=== PATIENT | female | born 1930 | race Caucasian/White ===

== ENCOUNTER 2017-09-14 08:32 | Observation (INO) ==
[2017-09-14] MEDS ORDERED: PROCHLORPERAZINE 10 MG/2 ML INJECTION IVP ONE (09:31)
[2017-09-14] MEDS ORDERED: MORPHINE SULFATE 4mg INJECTION IVP ONE ×2 (09:31→11:05)
--- NOTE | 2017-09-14 09:36 | Emergency Department Report ---
Back Pain HPI - General Chief Complaint: Back Pain/Injury Stated Complaint: Abd & lower back pain, R leg pain Time Seen by Provider: 09/14/17 09:14 Source: patient, RN notes reviewed, old records reviewed Mode of arrival: ambulatory Limitations: no limitations - History of Present Illness HPI Narrative: 87yo woman presents to the ER for evaluation of right flank pain. Pt has had these sx for the last month or so. She was initially seen by Dr. Collado; a hip X -ray showed osteoarthritis and he gave her pain meds, which helped until recently. He also referred the pt to Dr. Willams where she was diagnosed with a kidney infection and placed on atbx therapy. Pt now c/o worsening b/l flank pain and pelvic fullness unrelieved by anything that she has tried so far. MD Complaint: back pain Onset (ago): week(s) Duration: constant Location: left flank, right flank Severity: severe Quality: sharp, aching Radiation: abdomen Severity scale (1-10): 8 Relieving factors: medication Exacerbating factors: movement Context: unknown Associated symptoms: weakness, other (Nausea) Treatments prior to arrival: other medications, prescription analgesics - Related Data Home Medications Medication Instructions Recorded Confirmed Levothyroxine Tab [Synthroid] 125 mcg PO DAILY 03/05/17 09/14/17 Vitamin B Complex [Balanced B-100] 1 each PO DAILY 03/05/17 09/14/17 Cholecalciferol [Vit. D-3] 5,000 unit PO DAILY 04/25/17 09/14/17 Vitamin E 400 unit PO DAILY 04/25/17 09/14/17 Carvedilol [Coreg] 3.125 mg PO BID 06/05/17 09/14/17 Ascorbate Calcium [Vitamin C] 500 mg PO DAILY 09/14/17 09/14/17 Phenazopyridine HCl [Azo Urinary 95 mg PO PRN PRN 09/14/17 09/14/17 Pain Relief] SACUBITRIL/VALSARTAN 49/51mg 1 tab PO BID 09/14/17 09/14/17 [ENTRESTO 49/51mg] Spironolactone [Aldactone 25 mg] 25 mg PO DAILY 09/14/17 09/14/17 Previous Rx's Medication Instructions Recorded Nitroglycerin [Nitrostat] 0.4 mg SL Q5M PRN #20 tab 03/07/17 Omeprazole 20 mg PO ACB #30 tab 09/15/17 cephALEXin [Cephalexin] 500 mg PO TID #15 cap 09/15/17 Allergies Allergy/AdvReac Type Severity Reaction Status Date / Time No Known Drug Allergies Allergy Unknown Verified 09/14/17 09:22 Review of Systems All systems: reviewed and negative except as stated Musculoskeletal: Reports: as per HPI, back pain. Denies: joint swelling, arthralgia, myalgia PFSH Patient Stated Medical History Migraine Yes: none recently Peripheral Neuropathy Yes Cataracts Yes: right Dysphagia Yes Angina Yes: takes NTG prn--last Apr 2018 Cardiac Arrhythmia Yes: atrial fib Congestive Heart Failure Yes Coronary Artery Disease Yes Hypertension Yes Other Cardiology Yes: cardiomyopathy Sleep Apnea No Gastroesophageal Reflux Yes Disease Ulcer Yes Other GI Yes: gastroparesis; esophageal stricture Hx Kidney Stones Yes Hx Renal Disease Yes Hx Urinary Tract Infection Yes Other Musculoskeletal Yes: osteoporosis, arthritis Shingles Yes Depression Yes: hx of Surgical History: PPM 04/2001. Laminectomy. Hysterectomy. Appendectomy. carpel tunnel release - Social History Smoking status: Former smoker Substance use type: does not use Alcohol intake frequency: does not drink Household members: none Current occupational status: disabled, retired Current residence: Apartment/Private Home Physical Exam - Limitations Limitations: no limitations - General General appearance: alert, in no apparent distress - Normal Exams: Head:: Normocephalic without trauma Eyes:: Pupils are PERRLA w/ EOMI, No scleral icterus, irritation, or foreign bodies noted ENMT:: No facial trauma, nasal exudates, pharyngeal erythema, or exudates are noted Neck:: Full range of motion, without adenopathy Lymphatic:: No lymphadenopathy Integumentary:: No rashes, hives, or bruising noted Neurological:: Patient is alert, and oriented Psychiatric:: Patient exhibits, appropriate attention - Chest Chest inspection: Present: normal inspection, symmetric chest wall rise. Absent : tenderness, rash - Respiratory Respiratory exam: Present: normal lung sounds bilaterally. Absent: respiratory distress, wheezes, stridor, prolonged expiratory phase, crackles - Cardiovascular Cardiovascular exam: Present: irregular rhythm. Absent: regular rate, normal rhythm, rubs, gallop, clicks - Abdominal Exam Abdominal exam: Present: soft, normal bowel sounds. Absent: distention, tenderness, guarding, rebound, rigidity - Back Exam Back exam: Present: CVA tenderness (R), CVA tenderness (L) Course - Consultations Consultation #1: Hospitalist: Will admit pt to obs for further eval/treatment. Time: 11:04 Vital Signs Temperature 98.2 F 09/14/17 08:51 Pulse Rate 76 09/14/17 08:51 Respiratory Rate 18 09/14/17 08:51 Blood Pressure 197/81 H 09/14/17 08:51 Pulse Oximetry 93 09/14/17 08:51 Temperature 97.4 F 09/15/17 12:00 Pulse Rate 73 09/15/17 16:00 Respiratory Rate 16 09/15/17 12:00 Blood Pressure 171/73 H 09/15/17 12:00 Pulse Oximetry 93 09/15/17 12:00 Back Pain/Injury - MDM Narrative Medical decision making narrative: Pt with b/l pleural effusions and abdominal findings c/w enteritis. UA results c /w UTI/pyelo. Various electrolyte abn's with acute/chronic anemia. After reviewing hx, PE, and lab/rad findings with pt, will discuss admission with hospitalist for further intervention and acute care. - Differential Diagnosis Differential diagnosis: Likely: lumbar radiculopathy, sciatica, strain of lumbar region, renal colic, pyelonephritis - Medical Records Attestation: I reviewed the patient's medical records. - Lab Data Attestation: I reviewed the patient's lab results. Result diagrams: 09/15/17 04:31 09/15/17 04:31 Lab Results 09/14/17 09/14/17 09/14/17 Range/Units 10:10 10:10 10:10 WBC 8.5 (4.5-11.0) T/MM3 RBC 3.45 L (4.00-5.20) M/MM3 Hgb 9.6 L (12-16) GM/DL Hct 31.1 L (36-46) % MCV 90.1 (80-100) UM3 MCH 27.8 (26-34) UUG MCHC 30.9 L (31-37) GM/DL RDW Std Deviation 50.3 H (36.9-50.2) FL Plt Count 446 H (130-400) T/MM3 MPV 9.2 L (9.4-12.4) UM3 Immature Gran % (Auto) 0.1 (0.0-0.5) % Neut % (Auto) 79.9 H (33-66) % Lymph % (Auto) 11.6 L (23-45) % [place] % (Auto) 6.4 (0-9.0) % Eos % (Auto) 1.8 (0-4) % Baso % (Auto) 0.2 (0-2) % Neut # (Auto) 6.8 (1.8-7.7) T/MM3 Lymph # (Auto) 1.0 (1-4.8) T/MM3 [place] # (Auto) 0.5 (0-0.8) T/MM3 Eos # (Auto) 0.2 (0-0.5) T/MM3 Baso # (Auto) 0.0 (0-0.2) T/MM3 Abs Immat Gran (auto) 0.01 (0.00-0.03) T/MM3 Turbidity < 20 (0-20) Sodium 149 H (134-144) MEQ/L Potassium 2.8 L* (3.6-5) MEQ/L Chloride 109 H (98-107) MEQ/L Carbon Dioxide 26 (22-30) MEQ/L Anion Gap 14 (5-15) meq/L BUN 10.0 (7-17) MG/DL Creatinine 0.8 (0.7-1.2) mg/dL GFR Calculation 68 BUN/Creatinine Ratio 13 (6-26) RATIO Glucose 95 (65-110) MG/DL Calculated Osmolality 285 H (261-280) MOSM/KG Calcium 9.2 (8.4-10.2) MG/DL Total Bilirubin 0.50 (0.20-1.30) MG/DL Icterus Index < 2 (0-7) AST 18 (14-36) U/L ALT 14 (1-35) U/L Alkaline Phosphatase 88 (38-126) U/L Total Protein 6.5 (6.3-8.2) g/dL Albumin 3.7 (3.5-5.0) g/dL Globulin 2.8 (2.4-3.6) G/DL Albumin/Globulin Ratio 1.3 (1.1-2.2) RATIO Specimen Hemolysis < 15 (0-25) Ur Collection Type Urine, void-cc/notcc Urine Color [place] (YELLOW) Urine Clarity Cloudy Urine pH 6.0 (5.0-8.0) Ur Specific [place] 1.010 L (1.015-1.025) Urine Protein Inconcl due to color (NEGATIVE) Urine Glucose (UA) Inconcl due to color (NEGATIVE) Urine Ketones Inconcl due to color (NEGATIVE) Urine Occult Blood Trace-intact A (NEGATIVE) Urine Nitrate Inconcl due to color (NEGATIVE) Urine Bilirubin Inconcl due to color (NEGATIVE) Urine Urobilinogen Inconcl due to color (NORMAL) EU/DL Ur Leukocyte Esterase Inconcl due to color (NEGATIVE) Urine RBC 3-5 H (0-3) /HPF Urine WBC Tntc H (0-5) /HPF Urine WBC Clumps Many H Ur Squamous Epith Cells 0-5 Ur Transition Epith Cell 0-1 /HPF Urine Bacteria 4+ H (NEGATIVE) Ur Culture Indicated? Cult reflexed &setup - Radiology Data Attestation: I reviewed the patient's radiology results. CT abd/pelv: IMPRESSION: 1. Minimal nonobstructing left nephrocalcinosis. There is no evidence of obstructive uropathy. 2. Small to moderate size bilateral pleural effusions with subjacent infiltrate/atelectasis at both lung bases left greater than right. 3. Air-fluid levels in small and large bowel which may be due to a gastroenteritis. Recommend clinical correlation and follow-up as indicated. 4. Nodular enlargement of the left adrenal gland measuring 12 mm which is hypodense possibly representing a adrenal adenoma. 5. 12-mm cyst upper pole the left kidney. 6. Gallbladder and uterine anatomy are surgically absent. 7. Diverticulosis coli. 8. Extensive ASVD. 9. Cardiomegaly. Disposition Clinical Impression: pleural effusions, Hypokalemia, Hypernatremia UTI (urinary tract infection) Qualifiers: Urinary tract infection type: acute pyelonephritis Qualified Code(s): N10 - Acute pyelonephritis Anemia Qualifiers: Anemia type: unspecified type Qualified Code(s): D64.9 - Anemia, unspecified Disposition: [facility] [place] Condition: Stable - Seen By: physician
[2017-09-14] MEDS: SALINE FLUSH 10ml SYRINGE IVF PRN ×3 (10:10→11:13)
--- NOTE | 2017-09-14 10:53 | CT Scan Report ---
EXAM: CT renal wo con ([facility]) HISTORY: B/l flank pain COMPARISON: No prior studies are available for comparison PROCEDURE: Axial images were obtained throughout the entire abdomen and pelvis without contrast administration. The current CT scan was performed using radiation dose-reduction techniques. FINDINGS: FINDINGS: LUNG BASES: Small to moderate size bilateral pleural effusions are evident with subjacent infiltrate/atelectasis in both lower lobes left greater than right. The heart is enlarged with artifact from pacemaker wires. There is no pericardial effusion. LIVER: Normal size and contour showing no obvious discrete lesions on this unenhanced exam. SPLEEN: Normal size and contour showing no obvious discrete lesions on this unenhanced exam. GALLBLADDER/BILIARY: Surgically absent. PANCREAS: Normal size and contour showing no ductal dilatation, peripancreatic inflammatory stranding or obvious discrete lesions on this unenhanced exam. ADRENAL GLANDS: There is hypodense nodular enlargement of the left adrenal gland measuring 12 mm. The right adrenal gland appears unremarkable. KIDNEYS: Normal size and contour showing no obvious discrete lesions on this unenhanced exam. There is no evidence of hydronephrosis. There is minimal nonobstructing left nephrocalcinosis. There is no evidence of right nephrocalcinosis. There is no evidence of hydroureter or ureterolith.12-mm cyst upper pole the left kidney. VASCULAR: The abdominal aorta and IVC are normal caliber. Diffuse plaque formation is seen in the abdominal aorta and iliac arteries. LYMPH NODES: No abdominal pelvic adenopathy. STOMACH BOWEL LOOPS: There is a small hiatal hernia. The stomach is partially distended appearing otherwise unremarkable. The bowel loops are normal caliber, there is no evidence of mechanical bowel obstruction. There are scattered air-fluid levels seen within small and large bowel loops that are normal caliber. There is no obvious bowel wall thickening. The assessment for acute inflammatory bowel changes limited without IV contrast. Scattered diverticula are seen along the course of the colon without obvious diverticulitis. URINARY BLADDER: Not adequately distended for assessment. UTERINE ANATOMY: Surgically absent. OSSEOUS STRUCTURES: No obvious acute osseous abnormality. Advanced degenerative lumbar spondylosis is evident with multilevel severe disc narrowing and vacuum disc phenomenon. There is moderate right convex lumbar scoliosis. PERITONEAL CAVITY: No free air or free fluid ABDOMINAL WALL: No abdominal wall defects are identified IMPRESSION: 1. Minimal nonobstructing left nephrocalcinosis. There is no evidence of obstructive uropathy. 2. Small to moderate size bilateral pleural effusions with subjacent infiltrate/atelectasis at both lung bases left greater than right. 3. Air-fluid levels in small and large bowel which may be due to a gastroenteritis. Recommend clinical correlation and follow-up as indicated. 4. Nodular enlargement of the left adrenal gland measuring 12 mm which is hypodense possibly representing a adrenal adenoma. 5. 12-mm cyst upper pole the left kidney. 6. Gallbladder and uterine anatomy are surgically absent. 7. Diverticulosis coli. 8. Extensive ASVD. 9. Cardiomegaly. .
[2017-09-14 11:45] VITALS: BMI 19.9
[2017-09-14] MEDS ORDERED: ONDANSETRON 4 MG/2 ML INJECTION IVP PRN (11:52)
[2017-09-14] MEDS ORDERED: SENNA + DOCUSATE TABLET PO PRN (11:52)
[2017-09-14] MEDS ORDERED: MORPHINE SULFATE 4mg INJECTION IVP PRN (11:52)
[2017-09-14] MEDS ORDERED: NITROGLYCERIN 0.4 MG SUBLINGUAL TABLET SL PRN (11:59)
[2017-09-14] MEDS ORDERED: NS 1,000 ML IV SCH (12:00)
[2017-09-14] MEDS ORDERED: CARVEDILOL 3.125 MG TABLET PO ONE (12:14)
[2017-09-14] MEDS ORDERED: LISINOPRIL 5 MG TABLET PO SCH (12:15)
--- NOTE | 2017-09-14 12:43 | History & Physical Report ---
History of Present Illness Date: 09/14/17 Chief complaint: right flank/hip pain, UTI, hypernatremia, hypokalemia HPI: Trish Stanley is a pleasant 87-year-old female patient of Dr. Collado who presented to [facility] [place] ED today, 09/14/17, for evaluation of severe right sided hip and back pain. She reports that for the past 3-4 weeks, she has had progressively worsening right back and hip pain that is worse with walking and movement. She was seen by Dr. Collado and outpatient x-ray was obtained on 08/31/17 which revealed moderate diffuse osteopenia without definite displaced fracture and moderate osteoarthritis of the right hip. She was started on pain control with [place] and Ultram with minimal improvement. She denies any known injury or falls. No recent fevers, chills, chest pain, shortness of breath, nausea, vomiting or diarrhea. She reports that for the past 3 days, she has had decreased appetite with dizziness, increased right back pain, generalized weakness and decreased energy. She also reports increased nocturia but denies any dysuria, hematuria or incontinence. She has a history of urethral stricture for which she previously followed with Dr. Torres for dilation. She has not had a urethral dilation "forever". She admits to poor oral intake because "nothing tastes good" but denies any nausea or vomiting. Due to her increased pain with generalized weakness, she presented to [facility] [place] ED for evaluation. Upon arrival, blood pressure was elevated at 197/81. Labs were obtained and revealed stable WBC 8.5, anemia (Hgb 9.6), hypernatremia (Na 149) and hypokalemia (K 2.8). UA revealed WBC too numerous to count with WBC clumps and 4+ bacteria. She states that she was encouraged to take over the counter Azo for "pain" which she has been taking without improvement. Renal CT was obtained in ED and revealed small-moderate bilateral pleural effusions with subjacent infiltrate/atelectasis in both bases with questionable adrenal adenoma and left renal cyst. She has known a-fib and is scheduled for pacemaker replacement on 09/21/17 in [place] and follows with Dr. Travis. Due to her severe pain with electrolyte abnormalities, Dr. Butcher was consulted and she was accepted to observation status for further evaluation and treatment. Review of Systems All systems PM: 10-point ROS was reviewed, no additional remarkable complaints except - Constitutional Constitutional: Present: anorexia, fatigue. Absent: fever(s) - EENMT Eyes: Absent: change in vision, dry eye Ears: Absent: ear pain Balance: Absent: vertigo Nose: Absent: nosebleeds Mouth/Throat: Present: dry mouth. Absent: sore throat - Cardiovascular Cardiovascular: Absent: chest pain, palpitations, syncope, dyspnea on exertion, orthopnea, edema Vascular: Absent: pallor of an extermity, pedal edema, unilateral swelling - Respiratory Respiratory: Absent: cough, dyspnea, hemoptysis, dyspnea on exertion - Gastrointestinal Gastrointestinal: Present: abdominal pain (lower). Absent: diarrhea, melena, nausea, vomiting - Genitourinary Genitourinary: Present: flank pain, other (nocturia). Absent: dysuria, hematuria Menstruation: post hysterectomy - Musculoskeletal Musculoskeletal: Present: back pain, limited range of motion (right leg), muscle weakness. Absent: deformity - Integumentary/Breasts Integumentary: Absent: rash - Neurological Neurological: Present: abnormal gait (secondary to pain), weakness. Absent: convulsions, focal weakness, vertigo - Psychiatric Psychiatric: Absent: anxiety, depression - Endocrine Endocrine: Absent: flushing, palpitations - Hematologic/Lymphatic Hematologic/Lymphatic: Absent: easy bruising - Allergic/Immunologic Allergic/Immunologic: Present: seasonal rhinorrhea Past Medical History Medical History Updates: Hypertension. Peripheral neuropathy. Dysphagia. A- fib. CHF - EF ~20%. CAD. Cardiomyopathy. GERD. Esophageal strictures. History of frequent UTIs. Osteopenia. Osteoarthritis. History of shingles. History of depression. Back pain. Surgical History: Pacemaker placement - 2000 (scheduled to have replacement placed 09/21/17). Laminectomy. Hysterectomy. Appendectomy. Carpel tunnel release. Heart cath - 02/2017. EGD with dilation - 06/05/17 Family History: Brother - , unknown cancer. Sister - , bone cancer. Family History: As Above - Social History Smoking status: Former smoker Substance use type: does not use Alcohol intake frequency: does not drink Housing: house Household members: none Current occupational status: retired, disabled Does patient use chewing tobacco?: No Current residence: Apartment/Private Home Social history: PCP - Dr. Collado. Cardio - Dr. Travis. Medications Home Medications Medication Instructions Recorded Confirmed Type Levothyroxine Tab [Synthroid] 125 mcg PO DAILY 03/05/17 09/14/17 History Vitamin B Complex [Balanced B-100] 1 each PO DAILY 03/05/17 09/14/17 History Nitroglycerin [Nitrostat] 0.4 mg SL Q5M PRN #20 tab 03/07/17 09/14/17 Rx Cholecalciferol [Vit. D-3] 5,000 unit PO DAILY 04/25/17 09/14/17 History Vitamin E 400 unit PO DAILY 04/25/17 09/14/17 History Carvedilol [Coreg] 3.125 mg PO BID 06/05/17 09/14/17 History Ascorbate Calcium [Vitamin C] 500 mg PO DAILY 09/14/17 09/14/17 History Phenazopyridine HCl [Azo Urinary 95 mg PO PRN PRN 09/14/17 09/14/17 History Pain Relief] SACUBITRIL/VALSARTAN 49/51mg 1 tab PO BID 09/14/17 09/14/17 History [ENTRESTO 49/51mg] Spironolactone [Aldactone 25 mg] 25 mg PO DAILY 09/14/17 09/14/17 History Allergies Allergy/AdvReac Type Severity Reaction Status Date / Time No Known Drug Allergies Allergy Unknown Verified 09/14/17 09:22 Exam Vital Signs: Temperature 98.3 F 09/14/17 11:55 Pulse Rate 73 09/14/17 11:55 Respiratory Rate 18 09/14/17 11:55 Blood Pressure 190/117 H 09/14/17 11:55 Pulse Oximetry 93 09/14/17 11:55 Height/Weight/BMI: Height 4 ft 6 in Weight 82 lb 10.774 oz Body Mass Index 19.9 Comments: Patient resting in bed with family at the bedside. Appears uncomfortable with movement, holding her right lower back. - Constitutional Present: no acute distress, well nourished, well developed, thin, cooperative - Routine HEENT Exam Head: Present: normocephalic, atraumatic Eye: Present: PERRL ENT: Present: mucous membranes dry, oropharynx clear - Routine Neck Exam Present: supple, full ROM, trachea midline - Routine Chest/Breast/Axilla Exam Chest wall: Present: pacemaker - Routine Respiratory Exam Present: CTA bilaterally. Absent: respiratory distress, wheezes - Routine Cardiovascular Exam Present: S1, S2, irregular rhythm - Routine Abdominal Exam Present: soft, normoactive bowel sounds, tenderness (mild, generalized lower abdomen). Absent: rebound, guarding - Routine Extremities Exam Present: no edema, pulses intact Comments: limited ROM due to pain to right lower back/hip. - Routine Back/Spine/Pelvis Exam Back/Spine: Present: kyphosis. Absent: vertebral tenderness Comments: Limited ROM due to pain to right lower back and right hip. - Routine Skin Exam Present: intact, dry, warm Comments: Afebrile. - Routine Neurological Exam Present: alert, oriented X3, moving all extremities, hearing grossly intact, normal speech - Routine Psychiatric Exam Present: normal affect, cooperative Results - Labs CBC & Chem 7: 09/14/17 10:10 09/14/17 10:10 - Impressions Date of Exam: 09/14/17 Ordering Provider: Chirag Golden DO Type of Exam(s): CT renal wo con ([facility]) Reason for Exam(s): B/l flank pain EXAM: CT renal wo con ([facility]) HISTORY: B/l flank pain COMPARISON: No prior studies are available for comparison PROCEDURE: Axial images were obtained throughout the entire abdomen and pelvis without contrast administration. The current CT scan was performed using radiation dose-reduction techniques. FINDINGS: FINDINGS: LUNG BASES: Small to moderate size bilateral pleural effusions are evident with subjacent infiltrate/atelectasis in both lower lobes left greater than right. The heart is enlarged with artifact from pacemaker wires. There is no pericardial effusion. LIVER: Normal size and contour showing no obvious discrete lesions on this unenhanced exam. SPLEEN: Normal size and contour showing no obvious discrete lesions on this unenhanced exam. GALLBLADDER/BILIARY: Surgically absent. PANCREAS: Normal size and contour showing no ductal dilatation, peripancreatic inflammatory stranding or obvious discrete lesions on this unenhanced exam. ADRENAL GLANDS: There is hypodense nodular enlargement of the left adrenal gland measuring 12 mm. The right adrenal gland appears unremarkable. KIDNEYS: Normal size and contour showing no obvious discrete lesions on this unenhanced exam. There is no evidence of hydronephrosis. There is minimal nonobstructing left nephrocalcinosis. There is no evidence of right nephrocalcinosis. There is no evidence of hydroureter or ureterolith.12-mm cyst upper pole the left kidney. VASCULAR: The abdominal aorta and IVC are normal caliber. Diffuse plaque formation is seen in the abdominal aorta and iliac arteries. LYMPH NODES: No abdominal pelvic adenopathy. STOMACH BOWEL LOOPS: There is a small hiatal hernia. The stomach is partially distended appearing otherwise unremarkable. The bowel loops are normal caliber, there is no evidence of mechanical bowel obstruction. There are scattered air-fluid levels seen within small and large bowel loops that are normal caliber. There is no obvious bowel wall thickening. The assessment for acute inflammatory bowel changes limited without IV contrast. Scattered diverticula are seen along the course of the colon without obvious diverticulitis. URINARY BLADDER: Not adequately distended for assessment. UTERINE ANATOMY: Surgically absent. OSSEOUS STRUCTURES: No obvious acute osseous abnormality. Advanced degenerative lumbar spondylosis is evident with multilevel severe disc narrowing and vacuum disc phenomenon. There is moderate right convex lumbar scoliosis. PERITONEAL CAVITY: No free air or free fluid ABDOMINAL WALL: No abdominal wall defects are identified IMPRESSION: 1. Minimal nonobstructing left nephrocalcinosis. There is no evidence of obstructive uropathy. 2. Small to moderate size bilateral pleural effusions with subjacent infiltrate/atelectasis at both lung bases left greater than right. 3. Air-fluid levels in small and large bowel which may be due to a gastroenteritis. Recommend clinical correlation and follow-up as indicated. 4. Nodular enlargement of the left adrenal gland measuring 12 mm which is hypodense possibly representing a adrenal adenoma. 5. 12-mm cyst upper pole the left kidney. 6. Gallbladder and uterine anatomy are surgically absent. 7. Diverticulosis coli. 8. Extensive ASVD. 9. Cardiomegaly. Assessment and Plan Assessment and Plan: Assessment: Acute medical conditions present on admission: Acute right flank/back/hip pain. UTI. Hypernatremia (Na 149). Hypokalemia (K 2.8). Acute on chronic anemia (Hgb 9.6). Hypertensive emergency (197/81). Chronic medical conditions: Anemia, chronic. Hypertension. Peripheral neuropathy. Dysphagia. A-fib. CHF - EF ~20%. CAD. Cardiomyopathy. GERD. Esophageal strictures. History of frequent UTIs. Osteopenia. Osteoarthritis. History of shingles. History of depression. Back pain. Plan - 09/14/17: Admit to observation status under the care of Dr. Butcher. Pain out of proportion for pyelonephrosis. Clinical exam concerning for origin from right hip or low back. Will obtain right hip CT now for further evaluation. UA in ED revealed TNTC WBC with clumps and 4+ bacteria. Patient given Cipro 500mg IV x 1 dose in ED. WBC stable. Initiate Rocephin 1g IV daily for empiric coverage of suspected urinary pathogens. UA culture pending. Pyridium TID x 3 days for dysuria. Blood cultures pending. Lactate pending. Initiate NS 75cc/hr for gentle hydration. Monitor urinary output and daily weight closely for signs of fluid overload. EF ~20%. Give KCl IV boluses for hypokalemia. Recheck BMP at 1600 to monitor sodium and potassium. Monitor closely on telemetry. Will continue home Coreg 3.125 BID and Entresto 49/51 BID for blood pressure. Zofran and Compazine PRN nausea/vomiting. Given history of urethral strictures, would recommend outpatient follow up with Dr. Willams for evaluation and possible dilation. Recheck labs in AM to monitor blood counts, electrolytes and renal function. Upon discharge, patient's care will be returned to her PCP, Dr. Collado. Patient requests to be a DNR. DVT Prophylaxis: SCD's Resuscitation Status: Do Not Resuscitate - Time spent with patient Time with patient PN: 70 minutes - Physician Narrative Physician: Amrita Butcher MD Narrative: Date: 09/14/17 Time: 1537 Ms. Stanley was independently interviewed and examined by me. She is currently resting comfortably. She tells me her biggest complaint is right back, hip and leg pain. She states that hurts to walk. It's also very tender to palpation over the hip joint and buttocks. She has pain with lifting that leg off the bed as well as dorsal and plantar flexion against resistance. She denied fever or chills to me. She denied any lightheadedness. She does report shortness of breath but states this is not new and it's because of her heart. He denies any cough. She does have of abdominal pain primarily in the right lower quadrant. She denies any nausea or vomiting. She does admit to poor PO intake due to no appetite. She denied chest discomfort. She does have some dysuria complaints. She presented to the emergency room and was found to have a potassium of 2.8 with a sodium of 149 and a chloride 109. Her urine analysis showed 4+ bacteria. This will be cultured. A renal CT was done which showed minimal not instructing left nephrocalcinosis without obstructive neuropathy. Small to moderate bilateral pleural effusions with possible infiltrate/atelectasis at both lung bases, left greater than right. There are air fluid levels in the small bowel and large bowel which may be due to her gastroenteritis. There was nodular enhancement of the left adrenal gland which is hypo-dance and could represent and adrenal adenoma. There was a 12 mm system upper pole of the left kidney. There is extensive atherosclerotic vascular disease. A hip CT showed moderate degenerative changes in the region of the right hip joint. There was mild soft tissue swelling in the subcutaneous tissues over the right hip and buttock. On physical exam: Gen: alert and oriented. NAD Skin: warm and dry HEENT: NC/AT PERRL, EOMI, Sclera, lids and conjunctiva wnl, MMM, OP clear Neck: supple. No JVD, Carotids 2+ without bruits. Lungs: Few crackles at posterior bases, No wheezes. CV: irregular. No murmur, rub or gallop Abd: soft. NT/ND, +BS MS: No edema. Good strength and ROM in left LE and bilateral upper ext. Right side weak due to pain. Neuro: No focal deficit Psy: normal mood and affect Assessment and plan: Right hip pain -Consult ortho for an opinion -Pain management UTI -Rocephin and pyridium -Await urine cx. -Blood cx obtained Anemia, chronic -she is a bit lower than she has been in the past. -Will check iron studies and stool for occult blood Hypertension. -Will continue her Entresto as well as her carvedilol Hypokalemia -On aldactone and ARB -Replace and repeat labs A-fib. -Rate control with Carvedilol CHF - EF ~20%. -Patient going for replacement ICD next week. -On entresto -May need addition diuretics -due to her pleural effusions and her poor EF I would hold off on giving her IV fluids at this time, lactate is normal. CAD. -Medical management Cardiomyopathy. -On Entresto -On aldactone -ICD Hypothyroid -On supplements GERD -not on any Rx for this Esophageal strictures. -Would likely benefit from PPI chronically History of frequent UTIs. -Currently appears to have one, will treat with Rocephin IV -Await cultures History of depression. Back pain. Osteopenia. Osteoarthritis. Upon discharge, patient's care will be returned to her PCP, Dr. Collado. Patient requests to be a DNR. I have reviewed her notes, labs and imaging. The patient has been discussed with the nurse practitioner at length. I agree with her assessment and plan with the changes made above. Hospital Course Summary Disclaimer: The visit summary below is not to be considered part of the above Progress Note. Hospital Course: Plan - 09/14/17: Admit to observation status under the care of Dr. Butcher. Pain out of proportion for pyelonephrosis. Clinical exam concerning for origin from right hip or low back. Will obtain right hip CT now for further evaluation. UA in ED revealed TNTC WBC with clumps and 4+ bacteria. Patient given Cipro 500mg IV x 1 dose in ED. WBC stable. Initiate Rocephin 1g IV daily for empiric coverage of suspected urinary pathogens. UA culture pending. Pyridium TID x 3 days for dysuria. Blood cultures pending. Lactate pending. Initiate NS 75cc/hr for gentle hydration. Monitor urinary output and daily weight closely for signs of fluid overload. EF ~20%. Give KCl IV boluses for hypokalemia. Recheck BMP at 1600 to monitor sodium and potassium. Monitor closely on telemetry. Will continue home Coreg 3.125 BID and Entresto 49/51 BID for blood pressure. Zofran and Compazine PRN nausea/vomiting. Given history of urethral strictures, would recommend outpatient follow up with Dr. Willams for evaluation and possible dilation. Recheck labs in AM to monitor blood counts, electrolytes and renal function. Upon discharge, patient's care will be returned to her PCP, Dr. Collado. Patient requests to be a DNR.
[2017-09-14] MEDS: CEFTRIAXONE 1 G in NS 100 ML IV SCH (12:55)
[2017-09-14] MEDS ORDERED: CEFTRIAXONE IV SCH (13:00)
[2017-09-14] MEDS ORDERED: DEXTROSE 5% IV SCH (13:00)
[2017-09-14] MEDS: ACETAMINOPHEN 325 MG TABLET PO PRN ×2 (13:06→21:18)
[2017-09-14] MEDS: LIDOCAINE 1% INJ 10 MG, POTASSIUM CHLORIDE INJ 10 MEQ in NS 100 ML IV SCH ×4 (14:09→17:38)
--- NOTE | 2017-09-14 15:05 | CT Scan Report ---
EXAM: CT hip RT wo con HISTORY: hip pain COMPARISON: No prior studies available for comparison. TECHNIQUE: Contiguous thin section images were obtained through the right hip in the transaxial plane. Coronal, sagittal and 3-D reconstruction imaging was utilized. Dose reduction techniques were implemented. FINDINGS: The osseous structures of the right hip are moderately demineralized. Anatomic alignment is maintained at the articular surfaces. There is moderate degenerative narrowing of the superior aspect of the right hip joint with juxta articular spurring. No acute fractures or focal destructive lesions are identified. The right acetabulum, the right femoral head/neck, proximal shaft of the right femur and the right superior inferior pubic rami appear to be intact. Degenerative subchondral cystic changes are seen in the superolateral aspect of the femoral head/neck. Chondrocalcinosis is seen within the articular cartilage of the right femoral head. The bowel loops seen in the right hemipelvis are normal caliber. The visualized urinary bladder appears unremarkable. No free fluid or hematoma is seen within the right hemipelvis. There is mild soft tissue swelling in the subcutaneous tissues over right hip and buttock region. Arteriosclerotic vessel calcifications are visualized. IMPRESSION: 1. Moderate degenerative changes in the region of the right hip joint. 2. No acute bony trauma in the region of the right hip. 3. No free fluid or hematoma is seen in the right hemipelvis. 4. Mild soft tissue swelling in the subcutaneous tissues over the right hip and buttock. 5. ASVD. .
[2017-09-14] MEDS: PHENAZOPYRIDINE 95 MG TABLET PO SCH ×2 (16:34→21:19)
[2017-09-14] MEDS: CARVEDILOL 3.125 MG TABLET PO SCH (17:47)
[2017-09-14] MEDS: SACUBITRIL/VALSARTAN 49/51mg TABLET PO SCH (21:19)
--- NOTE | 2017-09-15 08:27 | Orthopedic Consult Note ---
Orthopedic Consultation HPI - Consultation Info Consult Date: 09/15/17 Attending Physician: Amrita Buthcer MD Consult Reason: other - History of Present Illness 87 yo female with a history of multiple back surgeries with on and off events of low back and right leg discomfort for many years. She most recently developed right low back and buttocks pain about 3-4 days before this admission. She reported severe pain with radicular symptoms down the right leg but never had numbness or loss of function in the leg. The pain was worse with wt bearing or trying to change position. She admits that the pain is improved since admission, but is not completely resolved. She denies injury, trauma, groin pain, fever, chills or loss of bowel/bladder function. Denies numbness, tingling or weakness in the leg. She is normally very active and, until recently, continued to mow her own yard. X-rays were recently taken by her PCP and CT scan of the hip on admission did not reveal any acute fracture or destructive process, but she does have age related degenerative changes in the hip joint. Orthopedics was asked to see her for evaluation and treatment of this process. Review of Systems - Constitutional Constitutional: Absent: chills, fever(s) - Cardiovascular Cardiovascular: Present: other (She is scheduled for a cardiac procedure in the next week or two. Had a pacemaker for 17 yrs.). Absent: chest pain - Respiratory Respiratory: Absent: cough (Was placed on oxygen last night.) - Gastrointestinal Gastrointestinal: Absent: abdominal pain - Genitourinary Genitourinary General: Absent: chills, fever(s) - Musculoskeletal Musculoskeletal: Present: as per HPI, arthralgias - Integumentary/Breasts Integumentary: Absent: rash, wounds - Neurological Neurological: Present: other (Has hurt into the right leg and into the great toe. ). Absent: focal weakness, numbness, paresthesias, tingling - Psychiatric Psychiatric: Present: other (No reported problems by pt or reading her history.) [facility] Patient Stated Medical History Migraine Yes: none recently Peripheral Neuropathy Yes Cataracts Yes: right Dysphagia Yes Angina Yes: takes NTG prn--last Apr 2018 Cardiac Arrhythmia Yes: atrial fib Congestive Heart Failure Yes Coronary Artery Disease Yes Hypertension Yes Other Cardiology Yes: cardiomyopathy Sleep Apnea No Gastroesophageal Reflux Yes Disease Ulcer Yes Other GI Yes: gastroparesis; esophageal stricture Hx Kidney Stones Yes Hx Urinary Tract Infection Yes Other Musculoskeletal Yes: osteoporosis, arthritis Shingles Yes Depression Yes: hx of Medical History Updates: Hypertension. Peripheral neuropathy. Dysphagia. A- fib. CHF - EF ~20%. CAD. Cardiomyopathy. GERD. Esophageal strictures. History of frequent UTIs. Osteopenia. Osteoarthritis. History of shingles. History of depression. Back pain. Surgical History: Pacemaker placement - 2000 (scheduled to have replacement placed 09/21/17). Laminectomy. Hysterectomy. Appendectomy. Carpel tunnel release. Heart cath - 02/2017. EGD with dilation - 06/05/17 - Social History Smoking status: Former smoker Substance use type: does not use Alcohol intake frequency: does not drink Housing: house Household members: none Current occupational status: retired, disabled Does patient use chewing tobacco?: No Current residence: Apartment/Private Home Medications Home Medications Medication Instructions Recorded Confirmed Type Levothyroxine Tab [Synthroid] 125 mcg PO DAILY 03/05/17 09/14/17 History Vitamin B Complex [Balanced B-100] 1 each PO DAILY 03/05/17 09/14/17 History Nitroglycerin [Nitrostat] 0.4 mg SL Q5M PRN #20 tab 03/07/17 09/14/17 Rx Cholecalciferol [Vit. D-3] 5,000 unit PO DAILY 04/25/17 09/14/17 History Vitamin E 400 unit PO DAILY 04/25/17 09/14/17 History Carvedilol [Coreg] 3.125 mg PO BID 06/05/17 09/14/17 History Ascorbate Calcium [Vitamin C] 500 mg PO DAILY 09/14/17 09/14/17 History Phenazopyridine HCl [Azo Urinary 95 mg PO PRN PRN 09/14/17 09/14/17 History Pain Relief] SACUBITRIL/VALSARTAN 49/51mg 1 tab PO BID 09/14/17 09/14/17 History [ENTRESTO 49/51mg] Spironolactone [Aldactone 25 mg] 25 mg PO DAILY 09/14/17 09/14/17 History Allergies Allergy/AdvReac Type Severity Reaction Status Date / Time No Known Drug Allergies Allergy Unknown Verified 09/14/17 09:22 Exam - Constitutional Vital Signs: Temperature 98.6 F 09/15/17 07:53 Pulse Rate 72 09/15/17 07:53 Respiratory Rate 18 09/15/17 07:53 Blood Pressure 178/73 H 09/15/17 07:53 Pulse Oximetry 96 09/15/17 08:05 General: cooperative, no acute distress, frail appearing Nutritional Appearance: thin Orientation: alert - Gait Assistive Device: walker - Psych Mood: normal Affect: normal Attitude: cooperative - RLE General: normal to inspection Knee: no effusion Knee Palpation: Nontender to Palpation: medial joint line, lateral joint line Hip Palpation: Tender: greater trochanteric bursa (Mild.), PSIS (Markedly tender. ) Skin: no rashes or lesions noted, no ecchymosis, no lacerations or abrasions Knee Range of Motion: within normal limits Hip Range of Motion: normal ROM Ankle Range of Motion: normal ROM Neurological: no deficits, normal to light touch, strength 5/5 throughout Vascular: dorsalis pedis pulse within normal limits Right Lower Extremity comments: No dermatomal changes. Strength is intact. Pt able to ambulate independently with a walker without focal weakness. - Labs Result Diagrams: 09/15/17 04:31 09/15/17 04:31 Abnormal lab results 09/14/17 09/15/17 09/15/17 Range/Units 16:07 04:31 04:31 RBC 3.47 L (4.00-5.20) M/MM3 Hgb 9.5 L (12-16) GM/DL Hct 31.7 L (36-46) % MCHC 30.0 L (31-37) GM/DL RDW Std Deviation 51.8 H (36.9-50.2) FL Plt Count 474 H (130-400) T/MM3 Neut % (Auto) 69.4 H (33-66) % Lymph % (Auto) 20.0 L (23-45) % Sodium 148 H 148 H (134-144) MEQ/L Potassium 3.2 L (3.6-5) MEQ/L Chloride 111 H 112 H (98-107) MEQ/L Calculated Osmolality 283 H 283 H (261-280) MOSM/KG H & H 09/15/17 Range/Units 04:31 Hgb 9.5 L (12-16) GM/DL Hct 31.7 L (36-46) % Impression and Recommendation (1) Enthesopathy of pelvis Current visit: Yes Status: Acute Although she has some radicular complaints, I don't see a particular dermatomal pattern to her complaints and exam does not support that this is originating from her back. Her hip joint is arthritic but her symptoms do not appear to be hip in nature. This appears to be a tendonitis or fasciitis of the PSIS attachment area. She is point tender over the PSIS region and these often respond well to an injection. I discussed the injection procedure and offered conservative observation since she is improving. Trish would like to proceed with a steroid injection at this site in hopes to improve her pain. We discussed possible side effects of the injection and reasonable expectations of relief. She may resume normal activities after the injection as tolerated. Use a walker to prevent falls. Hospital Course Summary Disclaimer: The visit summary below is not to be considered part of the above Progress Note. Hospital Course: Plan - 09/14/17: Admit to observation status under the care of Dr. Butcher. Pain out of proportion for pyelonephrosis. Clinical exam concerning for origin from right hip or low back. Will obtain right hip CT now for further evaluation. UA in ED revealed TNTC WBC with clumps and 4+ bacteria. Patient given Cipro 500mg IV x 1 dose in ED. WBC stable. Initiate Rocephin 1g IV daily for empiric coverage of suspected urinary pathogens. UA culture pending. Pyridium TID x 3 days for dysuria. Blood cultures pending. Lactate pending. Initiate NS 75cc/hr for gentle hydration. Monitor urinary output and daily weight closely for signs of fluid overload. EF ~20%. Give KCl IV boluses for hypokalemia. Recheck BMP at 1600 to monitor sodium and potassium. Monitor closely on telemetry. Will continue home Coreg 3.125 BID and Entresto 49/51 BID for blood pressure. Zofran and Compazine PRN nausea/vomiting. Given history of urethral strictures, would recommend outpatient follow up with Dr. Willams for evaluation and possible dilation. Recheck labs in AM to monitor blood counts, electrolytes and renal function. Upon discharge, patient's care will be returned to her PCP, Dr. Collado. Patient requests to be a DNR.
[2017-09-15] MEDS: CARVEDILOL 3.125 MG TABLET PO SCH (08:33)
[2017-09-15] MEDS: SACUBITRIL/VALSARTAN 49/51mg TABLET PO SCH (08:34)
[2017-09-15] MEDS: PHENAZOPYRIDINE 95 MG TABLET PO SCH ×2 (08:34→14:21)
--- NOTE | 2017-09-15 08:44 | Progress Note ---
- Date 09/15/17 Subjective: F/U: UTI, SI joint inflammation. Trish is seen first thing this morning in conjunction with [facility], and reports that she is feeling a little better. She is seen while ambulating back to her bed from the bathroom and is is ambulating well without assistance. She continues to complain of severe pain especially with movement and walking to her right SI joint. She also reports that she had a "panic attack" last night which she admits she has frequently. She was given Ativan and started on supplemental oxygen with improvement. She denies any current chest pain, shortness of breath, abdominal pain, nausea, vomiting or dysuria. Ortho has suggested trying steroid injection to her SI joint today to attempt pain improvement. Labs today remain unremarkable with persistent stable anemia (hgb 9.5). Appetite is stable and urinary output is adequate. Objective Vital signs: Temperature 98.6 F 09/15/17 07:53 Pulse Rate 72 09/15/17 07:53 Respiratory Rate 18 09/15/17 07:53 Blood Pressure 178/73 H 09/15/17 07:53 Pulse Oximetry 96 09/15/17 08:05 Height/Weight/BMI: Height 4 ft 6 in Weight 82 lb 10.774 oz Body Mass Index 19.9 Comments: Ambulated from bathroom back to bed without assistance or difficulty. Seen in conjunction with ortho. - Constitutional Present: no acute distress, well nourished, well developed, thin, cooperative - Routine HEENT Exam Head: Present: normocephalic, atraumatic Eye: Present: PERRL. Absent: conjunctival icterus ENT: Present: mucous membranes moist, oropharynx clear - Routine Respiratory Exam Present: CTA bilaterally. Absent: respiratory distress, wheezes - Routine Cardiovascular Exam Present: S1, S2, irregular rhythm - Routine Abdominal Exam Present: soft, normoactive bowel sounds, non tender - Routine Extremities Exam Present: no edema, full ROM, pulses intact Comments: strength equal and strong bilaterally. N/V intact. Point tenderness to right SI joint. - Routine Back/Spine/Pelvis Exam Back/Spine: Present: full ROM. Absent: vertebral tenderness - Routine Musculoskeletal Exam Musculoskeletal: Present: no clubbing or cyanosis, moving extremities well - Routine Skin Exam Present: intact, dry, warm Comments: Afebrile. - Routine Neurological Exam Present: alert, oriented X3, moving all extremities, hearing grossly intact, normal speech - Routine Lymphatic Exam Lymphatic: Absent: lymphedema - Routine Psychiatric Exam Present: normal affect, cooperative Results - Labs CBC & Chem 7: 09/15/17 04:31 09/15/17 04:31 Microbiology Results: Microbiology 09/14/17 13:31 Peripheral/Iv Start Blood Culture - Preliminary Culture Initiated - Results Pending 09/14/17 13:37 Peripheral/Iv Start Blood Culture - Preliminary Culture Initiated - Results Pending Assessment and Plan Assessment and Plan: Acute medical conditions present on admission: Acute right flank/back/hip pain. Tendonitis or fasciitis of the PSIS attachment area. UTI - E coli. Hypernatremia (Na 149). Hypokalemia (K 2.8) - resolved. Acute on chronic anemia (Hgb 9.6) - stable. Hypertensive emergency (197/81). Chronic medical conditions: Anemia, chronic. Hypertension. Peripheral neuropathy. Dysphagia. A-fib. CHF - EF ~20%. CAD. Cardiomyopathy. GERD. Esophageal strictures. History of frequent UTIs. Osteopenia. Osteoarthritis. History of shingles. History of depression. Back pain. Plan - 09/15/17: Patient reports having a panic attack last night. She admits to history of anxiety with frequent panic attacks. Improved with ativan and supplemental oxygen. Evaluated by ortho this AM. Recommended steroid injection to SI joint for pain control today. Labs unremarkable. Anemia stable (hgb 9.5). Remains afebrile. Continue Rocephin 1g IV for empiric coverage of suspected urinary pathogens ( day 2). UA culture pending. Pyridium TID x 3 days for dysuria. Blood cultures pending. Serial lactates 0.8 then 0.7. Hypokalemia resolved. Given KCl IV boluses with improvement to 3.2. Then given KCl 40 mEq po x 1 dose. Continue to monitor. Persistent hypernatremia (Na 148). NS 75cc/hr for gentle hydration. Monitor urinary output and daily weight closely for signs of fluid overload. EF ~20%. Continue to monitor closely on telemetry. Will continue home Coreg 3.125 BID and Entresto 49/51 BID for blood pressure. Zofran and Compazine PRN nausea/vomiting. Given history of urethral strictures, would recommend outpatient follow up with Dr. Willams for evaluation and possible dilation. Recheck labs in AM to monitor blood counts, electrolytes and renal function. DVT Prophylaxis: SCD's Resuscitation Status: Do Not Resuscitate - Time spent with patient Time with patient PN: 30 minutes - Physician Narrative Physician: Bennie Stovall MD Narrative: Date: 09/15/17 Time: 1422 Have independently interviewed & examined pt. Chart reviewed. Case discussed with CM & my PA. Care plan developed with my supervision; agree with above. Doing better this afternoon-note some decrease to hip pain. Did work with therapy and did well-they recommend walker for assistance, which she has at home. Breathing well-not having increased SOA or congestion. No pain with breathing. No nausea. Denies f/c. Does note increase acid reflux and some difficulty swallowing since omeprazole changed to ranitidine. Lungs: basilar blunting, but not crackles or wheeze. Breaths comfortably on RA. CV: regular AB: soft nt MSE: awake alert appropriate Plan: Medically stable for discharge to home. Walker for assistance as per PT recommendations. Will start cephalexin 500mg TID for 5 days starting tomorrow for Ecoli UTI treatment. Recommend omeprazole 20mg ac breakfast due to GERD/ esophagitis as symptoms not controlled with ranitidine. Continue chronic home medications. Continue home health as prior to admission. F/U with Dr Collado in 1 week. See orders for details. Hospital Course Summary Disclaimer: The visit summary below is not to be considered part of the above Progress Note. Hospital Course: 09/14/17 Admit to observation status under the care of Dr. Butcher. Pain out of proportion for pyelonephrosis. Clinical exam concerning for origin from right hip or low back. Will obtain right hip CT now for further evaluation. UA in ED revealed TNTC WBC with clumps and 4+ bacteria. Patient given Cipro 500mg IV x 1 dose in ED. WBC stable. Initiate Rocephin 1g IV daily for empiric coverage of suspected urinary pathogens. UA culture pending. Pyridium TID x 3 days for dysuria. Blood cultures pending. Lactate pending. Initiate NS 75cc/hr for gentle hydration. Monitor urinary output and daily weight closely for signs of fluid overload. EF ~20%. Give KCl IV boluses for hypokalemia. Recheck BMP at 1600 to monitor sodium and potassium. Monitor closely on telemetry. Will continue home Coreg 3.125 BID and Entresto 49/51 BID for blood pressure. Zofran and Compazine PRN nausea/vomiting. Given history of urethral strictures, would recommend outpatient follow up with Dr. Willams for evaluation and possible dilation. Recheck labs in AM to monitor blood counts, electrolytes and renal function. Upon discharge, patient's care will be returned to her PCP, Dr. Collado. Patient requests to be a DNR. 09/15/17 Patient reports having a panic attack last night. She admits to history of anxiety with frequent panic attacks. Improved with Ativan and supplemental oxygen. Evaluated by ortho this AM. Recommended steroid injection to SI joint for pain control today. Labs unremarkable. Anemia stable (hgb 9.5). Remains afebrile. Continue Rocephin 1g IV for empiric coverage of suspected urinary pathogens ( day 2). UA culture growing E coli. Pyridium TID x 3 days for dysuria. Blood cultures pending. Serial lactates 0.8 then 0.7. Hypokalemia resolved. Given KCl IV boluses with improvement to 3.2. Then given KCl 40 mEq po x 1 dose. Continue to monitor. Persistent hypernatremia (Na 148). NS 75cc/hr for gentle hydration. Monitor urinary output and daily weight closely for signs of fluid overload. EF ~20%. Will continue home Coreg 3.125 BID and Entresto 49/51 BID for blood pressure. Given history of urethral strictures, would recommend outpatient follow up with Dr. Willams for evaluation and possible dilation. Medically stable for discharge to home. Walker for assistance as per PT recommendations. Will start cephalexin 500mg TID for 5 days starting tomorrow for Ecoli UTI treatment. Recommend omeprazole 20mg ac breakfast due to GERD/esophagitis as symptoms not controlled with ranitidine. Continue chronic home medications. Continue home health as prior to admission. F/U with Dr Collado in 1 week. See orders for details.
[2017-09-15] MEDS ORDERED: NS 1,000 ML IV SCH (08:45)
--- NOTE | 2017-09-15 08:45 | Operative Note ---
Orthopedic Procedures - Bursa Procedures Site of procedure: other (Right PSIS attachment) XRAY obtained: normal Antisepsis used: Chlorhexidine Local anesthetic used: lidocaine 1% Amount of anesthesia used (mL): 4 Medication injected: other (Kenalog 40mg ) Amount of medication used (mg): 40 Lidocaine added to medication: Yes (The 4cc was added to the Kenalog.) Patient tolerated procedure: well, no complications Complications: none
[2017-09-15] MEDS ORDERED: ASCORBIC ACID 500 MG TABLET PO SCH (09:00)
[2017-09-15] MEDS ORDERED: VITAMIN E 400 UNIT CAPSULE PO SCH (09:00)
[2017-09-15] MEDS ORDERED: VITAMIN B COMPLEX + C TABLET PO SCH (09:00)
[2017-09-15] MEDS ORDERED: SPIRONOLACTONE 25 MG TABLET PO SCH (09:00)
[2017-09-15] MEDS ORDERED: LEVOTHYROXINE 125 MCG TABLET PO SCH (09:00)
[2017-09-15] MEDS ORDERED: POLYETHYL GLYCOL 3350 17gm PACKET PO SCH (09:00)
--- NOTE | 2017-09-15 09:51 | XRay Report ---
INDICATION: Sys HF PROCEDURE: CHEST 2-VIEWS UPRIGHT (PA & LAT) Encounter: Initial COMPARISON: June 16, 2017 FINDINGS: Lungs are similar in appearance with small to moderate left and small right pleural effusions. Lower lobe compressive atelectasis. No pneumothorax. Heart size and mediastinal contours are stable. Pulmonary vascularity is indistinct. Left pacemaker. Impression: Moderate pulmonary edema, likely due to CHF with increasing pleural fluid. .
[2017-09-15] MEDS ORDERED: TRIAMCINOLONE 40mg/ml 1ml INJECTION INJ ONE (12:42)
[2017-09-15 13:00] VITALS: BP 171/73; RESP 16; TEMP 97.4; O2SAT 93
[2017-09-15] MEDS: CEFTRIAXONE 1 G in NS 100 ML IV SCH (14:21)
--- NOTE | 2017-09-15 14:45 | Discharge Summary ---
Discharge Information Date of admission: 09/14/17 11:12 Anticipated date of discharge: 09/15/17 Attending Physician: Bennie Stovall MD Primary care physician: Terrance Collado II, MD Consults: Physician Consult: Cassius Boucher Reason For Exam: acute right hip pain - no trauma PT/OT - Discharge Diagnosis (1) E. coli UTI (urinary tract infection) Status: Acute Discharge diagnosis Acute right flank/back/hip pain Tendonitis or fasciitis of the PSIS attachment area. UTI - E coli Associated conditions and complications Hypernatremia (POA) Hypokalemia (POA) - resolved. Small to moderate left and small right pleural effusions (POA) Nonobstructing left nephrocalcinosis (POA) Acute on chronic anemia (Hgb 9.6) - stable Hypertensive emergency () -improved Anemia, chronic Hypertension Peripheral neuropathy Dysphagia A-fib CHF - EF ~20% CAD Cardiomyopathy GERD Esophageal strictures History of frequent UTIs Osteopenia Osteoarthritis History of shingles History of depression Back pain - Procedures Procedures: Orthopedic Procedures - Bursa Procedures Site of procedure: other (Right PSIS attachment) Antisepsis used: Chlorhexidine Local anesthetic used: lidocaine 1% Amount of anesthesia used (mL): 4 Medication injected: other (Kenalog 40mg ) Amount of medication used (mg): 40 Lidocaine added to medication: Yes (The 4cc was added to the Kenalog.) Patient tolerated procedure: well, no complications Complications: none - Laboratory Labs: Admit Lab 09/14/17 10:10 WBC 8.5 Hgb 9.6 L Hct 31.1 L MCV 90.1 Plt Count 446 H Neut % (Auto) 79.9 H Lymph % (Auto) 11.6 L [place] % (Auto) 6.4 Eos % (Auto) 1.8 Baso % (Auto) 0.2 Admit Lab 09/14/17 09/14/17 10:10 13:31 Sodium 149 H Potassium 2.8 L* Chloride 109 H Carbon Dioxide 26 Anion Gap 14 BUN 10.0 Creatinine 0.8 GFR Calculation 68 BUN/Creatinine Ratio 13 Glucose 95 Calculated Osmolality 285 H Calcium 9.2 Total Bilirubin 0.50 AST 18 ALT 14 Alkaline Phosphatase 88 Albumin 3.7 Globulin 2.8 Albumin/Globulin Ratio 1.3 Plasma Lactate 0.8 09/15/17 04:31 09/15/17 04:31 - Microbiology Microbiology 09/14/17 13:31 Peripheral/Iv Start Blood Culture - Preliminary No Growth After 1 Day 09/14/17 13:37 Peripheral/Iv Start Blood Culture - Preliminary No Growth After 1 Day Urine culture from admission growing E coli - Radiology Radiology: Date of Exam: 09/14/17 Type of Exam: CT renal wo con (stone kahlil) FINDINGS: LUNG BASES: Small to moderate size bilateral pleural effusions are evident with subjacent infiltrate/atelectasis in both lower lobes left greater than right. The heart is enlarged with artifact from pacemaker wires. There is no pericardial effusion. LIVER: Normal size and contour showing no obvious discrete lesions on this unenhanced exam. SPLEEN: Normal size and contour showing no obvious discrete lesions on this unenhanced exam. GALLBLADDER/BILIARY: Surgically absent. PANCREAS: Normal size and contour showing no ductal dilatation, peripancreatic inflammatory stranding or obvious discrete lesions on this unenhanced exam. ADRENAL GLANDS: There is hypodense nodular enlargement of the left adrenal gland measuring 12 mm. The right adrenal gland appears unremarkable. KIDNEYS: Normal size and contour showing no obvious discrete lesions on this unenhanced exam. There is no evidence of hydronephrosis. There is minimal nonobstructing left nephrocalcinosis. There is no evidence of right nephrocalcinosis. There is no evidence of hydroureter or ureterolith.12-mm cyst upper pole the left kidney. VASCULAR: The abdominal aorta and IVC are normal caliber. Diffuse plaque formation is seen in the abdominal aorta and iliac arteries. LYMPH NODES: No abdominal pelvic adenopathy. STOMACH BOWEL LOOPS: There is a small hiatal hernia. The stomach is partially distended appearing otherwise unremarkable. The bowel loops are normal caliber, there is no evidence of mechanical bowel obstruction. There are scattered air-fluid levels seen within small and large bowel loops that are normal caliber. There is no obvious bowel wall thickening. The assessment for acute inflammatory bowel changes limited without IV contrast. Scattered diverticula are seen along the course of the colon without obvious diverticulitis. URINARY BLADDER: Not adequately distended for assessment. UTERINE ANATOMY: Surgically absent. OSSEOUS STRUCTURES: No obvious acute osseous abnormality. Advanced degenerative lumbar spondylosis is evident with multilevel severe disc narrowing and vacuum disc phenomenon. There is moderate right convex lumbar scoliosis. PERITONEAL CAVITY: No free air or free fluid ABDOMINAL WALL: No abdominal wall defects are identified IMPRESSION: 1. Minimal nonobstructing left nephrocalcinosis. There is no evidence of obstructive uropathy. 2. Small to moderate size bilateral pleural effusions with subjacent infiltrate/ atelectasis at both lung bases left greater than right. 3. Air-fluid levels in small and large bowel which may be due to a gastroenteritis. Recommend clinical correlation and follow-up as indicated. 4. Nodular enlargement of the left adrenal gland measuring 12 mm which is hypodense possibly representing a adrenal adenoma. 5. 12-mm cyst upper pole the left kidney. 6. Gallbladder and uterine anatomy are surgically absent. 7. Diverticulosis coli. 8. Extensive ASVD. 9. Cardiomegaly. Date of Exam: 09/14/17 Type of Exam: CT hip RT wo con FINDINGS: The osseous structures of the right hip are moderately demineralized. Anatomic alignment is maintained at the articular surfaces. There is moderate degenerative narrowing of the superior aspect of the right hip joint with juxta articular spurring. No acute fractures or focal destructive lesions are identified. The right acetabulum, the right femoral head/neck, proximal shaft of the right femur and the right superior inferior pubic rami appear to be intact. Degenerative subchondral cystic changes are seen in the superolateral aspect of the femoral head/neck. Chondrocalcinosis is seen within the articular cartilage of the right femoral head. The bowel loops seen in the right hemipelvis are normal caliber. The visualized urinary bladder appears unremarkable. No free fluid or hematoma is seen within the right hemipelvis. There is mild soft tissue swelling in the subcutaneous tissues over right hip and buttock region. Arteriosclerotic vessel calcifications are visualized. IMPRESSION: 1. Moderate degenerative changes in the region of the right hip joint. 2. No acute bony trauma in the region of the right hip. 3. No free fluid or hematoma is seen in the right hemipelvis. 4. Mild soft tissue swelling in the subcutaneous tissues over the right hip and buttock. 5. ASVD. Date of Exam: 09/15/17 Type of Exam: XR chest 2V FINDINGS: Lungs are similar in appearance with small to moderate left and small right pleural effusions. Lower lobe compressive atelectasis. No pneumothorax. Heart size and mediastinal contours are stable. Pulmonary vascularity is indistinct. Left pacemaker. Impression: Moderate pulmonary edema, likely due to CHF with increasing pleural fluid. History of Present Illness HPI: Trish Stanley is a pleasant 87-year-old female patient of Dr. Collado who presented to [facility] today, 09/14/17, for evaluation of severe right sided hip and back pain. She reports that for the past 3-4 weeks, she has had progressively worsening right back and hip pain that is worse with walking and movement. She was seen by Dr. Collado and outpatient x-ray was obtained on 08/31/17 which revealed moderate diffuse osteopenia without definite displaced fracture and moderate osteoarthritis of the right hip. She was started on pain control with [place] and Ultram with minimal improvement. She denies any known injury or falls. No recent fevers, chills, chest pain, shortness of breath, nausea, vomiting or diarrhea. She reports that for the past 3 days, she has had decreased appetite with dizziness, increased right back pain, generalized weakness and decreased energy. She also reports increased nocturia but denies any dysuria, hematuria or incontinence. She has a history of urethral stricture for which she previously followed with Dr. Torres for dilation. She has not had a urethral dilation "forever". She admits to poor oral intake because "nothing tastes good" but denies any nausea or vomiting. Due to her increased pain with generalized weakness, she presented to [facility] for evaluation. Upon arrival, blood pressure was elevated at 197/81. Labs were obtained and revealed stable WBC 8.5, anemia (Hgb 9.6), hypernatremia (Na 149) and hypokalemia (K 2.8). UA revealed WBC too numerous to count with WBC clumps and 4+ bacteria. She states that she was encouraged to take over the counter Azo for "pain" which she has been taking without improvement. Renal CT was obtained in ED and revealed small-moderate bilateral pleural effusions with subjacent infiltrate/atelectasis in both bases with questionable adrenal adenoma and left renal cyst. She has known a-fib and is scheduled for pacemaker replacement on 09/21/17 in [place] and follows with Dr. Travis. Due to her severe pain with electrolyte abnormalities, Dr. Butcher was consulted and she was accepted to observation status for further evaluation and treatment. For complete details of the H&P refer to that document. Objective Vital signs: Temperature 97.4 F 09/15/17 12:00 Pulse Rate 74 09/15/17 12:00 Respiratory Rate 16 09/15/17 12:00 Blood Pressure 171/73 H 09/15/17 12:00 Pulse Oximetry 93 09/15/17 12:00 Height/Weight/BMI: Height 1.37 m Weight 40 kg Body Mass Index 19.9 Hospital Course This is a general summary of the patient's hospital course. For more details refer to the complete medical record. Hospital course: 09/14/17 OBS admission Admit to observation status under the care of Dr. Butcher. Pain out of proportion for pyelonephrosis. Clinical exam concerning for origin from right hip or low back. Will obtain right hip CT now for further evaluation. UA in ED revealed TNTC WBC with clumps and 4+ bacteria. Patient given Cipro 500mg IV x 1 dose in ED. WBC stable. Initiate Rocephin 1g IV daily for empiric coverage of suspected urinary pathogens. UA culture pending. Pyridium TID x 3 days for dysuria. Blood cultures pending. Lactate pending. Initiate NS 75cc/hr for gentle hydration. Monitor urinary output and daily weight closely for signs of fluid overload. EF ~20%. Give KCl IV boluses for hypokalemia. Recheck BMP at 1600 to monitor sodium and potassium. Monitor closely on telemetry. Will continue home Coreg 3.125 BID and Entresto 49/51 BID for blood pressure. Zofran and Compazine PRN nausea/vomiting. Given history of urethral strictures, would recommend outpatient follow up with Dr. Wilalms for evaluation and possible dilation. Recheck labs in AM to monitor blood counts, electrolytes and renal function. Upon discharge, patient's care will be returned to her PCP, Dr. Collado. Patient requests to be a DNR. 09/15/17 Discharge Patient reports having a panic attack last night. She admits to history of anxiety with frequent panic attacks. Improved with Ativan and supplemental oxygen. Evaluated by ortho this AM. Recommended steroid injection to SI joint for pain control today. Labs unremarkable. Anemia stable (hgb 9.5). Remains afebrile. Continue Rocephin 1g IV for empiric coverage of suspected urinary pathogens ( day 2). UA culture growing E coli. Pyridium TID x 3 days for dysuria. Blood cultures pending. Serial lactates 0.8 then 0.7. Hypokalemia resolved. Given KCl IV boluses with improvement to 3.2. Then given KCl 40 mEq po x 1 dose. Continue to monitor. Persistent hypernatremia (Na 148). NS 75cc/hr for gentle hydration. Monitor urinary output and daily weight closely for signs of fluid overload. EF ~20%. Will continue home Coreg 3.125 BID and Entresto 49/51 BID for blood pressure. Given history of urethral strictures, would recommend outpatient follow up with Dr. Willams for evaluation and possible dilation. Medically stable for discharge to home. Walker for assistance as per PT recommendations. Will start cephalexin 500mg TID for 5 days starting tomorrow for Ecoli UTI treatment. Recommend omeprazole 20mg ac breakfast due to GERD/esophagitis as symptoms not controlled with ranitidine. Continue chronic home medications. Continue home health as prior to admission. F/U with Dr Collado in 1 week. F/U with Dr. Willams for evaluation and possible dilation of ureteral stricture. F/U with Dr Boucher as needed for back/hip pain. See orders for details. Time spent with patient: discharge greater than 30 minutes Resuscitation Status: Do Not Resuscitate Discharge Plan - Discharge Disposition Discharge Date: 09/15/17 Disposition: 86 Home Health Service *Condition: Stable Reason For Visit (Visit label in EMR): pyelo; pleural effusion - Discharge Medications *Discharge Medications: New Omeprazole 20 mg PO ACB #30 tab cephALEXin [Cephalexin] 500 mg PO TID #15 cap Continue Vitamin B Complex [Balanced B-100] 1 each PO DAILY Nitroglycerin [Nitrostat] 0.4 mg SL Q5M PRN #20 tab PRN Reason: Angina Cholecalciferol [Vit. D-3] 5,000 unit PO DAILY Vitamin E 400 unit PO DAILY Carvedilol [Coreg] 3.125 mg PO BID Ascorbate Calcium [Vitamin C] 500 mg PO DAILY Spironolactone [Aldactone 25 mg] 25 mg PO DAILY SACUBITRIL/VALSARTAN 49/51mg [ENTRESTO 49/51mg] 1 tab PO BID Phenazopyridine HCl [Azo Urinary Pain Relief] 95 mg PO PRN PRN PRN Reason: Bladder Spasms Or Pain Levothyroxine Tab [Synthroid] 125 mcg PO DAILY - Discharge Packet/Instructions *Diet: Low sodium *Activity: Walker for assistance *Pain Management/Treatment: Continue prior home pain medications. Tylenol safe to use for pain. *Wound Care: N/A Additional Instructions: May start cephalexin on Wens 09/16/17. *Expected Signs/Symptoms: Improvement of hip and back pain. *Notify Physician if: Temp > 100.4 degrees. Worsening hip/back pain. *During Business Hours Contact: Dr Collado *After Business Hours Contact: Call [facility] and have Dr Collado or his covering provider contacted. *Pending Lab/Results: Follow up w/Provider (Urine culture and sensitivity pending.) - Referrals/Follow Up *Referrals/Follow Up: Terrance Collado II, MD [Primary Care Provider] - 1 Week (Hopsital follow up with E coli UTI and back pain from tendonitis or fasciitis of the PSIS attachment area on right. ) Cassius Boucher MD [Physician] - (As needed for tendonitis or fasciitis of the PSIS attachment area) Murray Willams MD [Physician] - 1 Week (Urological evaluation for history or urerteral strictures. See in 1-2 weeks.) - Patient Handouts - Dismissal Complete Discharge Instructions are:: Complete Physician Narrative - Narrative Physician: Bennie Stovall MD Attestation Narrative: Date: 09/15/17 Time: 1442 I have independently interviewed and examined patient prior to discharge. See my progress note for details. Medically stable for discharge to home.
[2017-09-15 16:29] VITALS: PULSE 73
== END 2017-09-15 16:20 | disposition home health service (06) ==
LOC: MED 08:32 → ED 08:32 → SUATTDRO 11:12 → MED 11:35
PROVIDERS: ADMIT Internal Medicine Cardiovascular Disease; ATTEND Hospitalist

== ENCOUNTER 2017-11-23 18:25 | Observation (INO) ==
--- OUTSIDE RECORDS SUMMARY | 2017-11-23 18:42 | External Medical Summary ---
:1930 Author Organization [facility] Address [address] [place] [address] Care Team Providers Name Role Phone KevinAlysha hanley Unavailable Unavailable PROBLEMS Type Condition ICD9-CM [id number] Onset Condition SNOMED Code Code Code Dates Status Problem Biventricular Z95.810 Active 83036497396849 implantable cardioverter-defib rillator (ICD) in situ Problem Non-ischemic I42.8 Active 46006769 cardiomyopathy Problem Pacemaker Z95.0 Active [id number] ALLERGIES No Known Allergies ENCOUNTERS Encounter Location Date Diagnosis [address] Jan, [facility] [address] [place] [address] Oct, Non-ischemic cardiomyopathy [facility] [address] I42.8 ; Bradycardia R00.1 [place] [address] and Biventricular implantable cardioverter-defibrillator (ICD) in situ Z95.[address] September, [address] [address] September, [address] [address] September, Non-ischemic cardiomyopathy [facility] [address] I42.8 ; Bradycardia R00.1 [place] [address] and Pacemaker Z95.0 IMMUNIZATIONS No Known Immunizations SOCIAL HISTORY Never Assessed REASON FOR VISIT ^GAT F/U POST DEVICE UPGRADE PLAN OF CARE Activity Details Follow Up 3 Months Reason: VITAL SIGNS Height 55 in 2017-10-09 Weight 82.6 lbs 2017-10-09 BMI 19.20 kg/m2 2017-10-09 Oximetry 98 % 2017-10-09 Heart Rate 63 /min 2017-10-09 Blood pressure systolic 128 mm Hg 2017-10-09 Blood pressure diastolic 64 mm Hg 2017-10-09 MEDICATIONS Medication Instructions Dosage Frequency Start End Duration Status Date Date Vitamin B 100 MCG Orally qd 1 tab 24h Active Vitamin D 1000 Orally Once a 1 tablet 24h Active UNIT day Hydrocodone 1 tab PRN 5-325mg Active Loratadine 10 MG Orally Once a 1 tablet 24h Active day Vitamin E 400 UNIT Orally Once a 1 capsule 24h Active day Vitamin C 500 MG Active Omeprazole 20 MG Orally Once a 1 capsule 24h Active day Levothyroxine Orally Once a 1 tablet 24h Active Sodium 125 MCG day on an empty stomach in the morning Carvedilol 3.125 Orally bid 1 tqab 12h Active MG Spironolactone 25 Orally Once a 1 tablet 24h Active MG day with food Furosemide 20 MG Orally Once a 1 tablet 24h Active day Entresto 24-26 MG Orally Twice a 1 tablet 12h Active day Aspirin 81 MG Orally Once a 1 tablet 24h Active day Atorvastatin Orally Once a 1 tablet 24h Active Calcium 10 MG day RESULTS Name Result Date Reference Range AtriaECW PROCEDURES Procedure Date Ordered Result Body Site ELECTROCARDIOGRAM, COMPLETE October 09, 2017 Ofc Program ICD BiV, Staff October 09, 2017 INSTRUCTIONS MEDICATIONS ADMINISTERED No Known Medications MEDICAL (GENERAL) HISTORY Type Description Date Surgical History Cardiac pacemaker Surgical History Laminectomy Surgical History Hysterectomy Surgical History Appendectomy Surgical History carpal tunnel Surgical History Cataract removal
--- OUTSIDE RECORDS SUMMARY | 2017-11-23 18:42 | External Medical Summary ---
:1930 Author Organization [employer] [facility] Address [address] [place] [address] Care Team Providers Name Role Phone Alysha Jerez Unavailable Unavailable PROBLEMS Type Condition ICD9-CM Code [id number] Onset Condition SNOMED Code Code Dates Status Problem Non-ischemic I42.8 Active 55202193 cardiomyopathy Problem Pacemaker Z95.0 Active [id number] ALLERGIES No Known Allergies ENCOUNTERS Encounter Location Date Diagnosis [address] Oct, [employer] [facility] [address] [place] [address] [employer] [facility] [address] [facility] September, [address] [place] [address] [employer] [address] September, [address] [place] [address] September, Non-ischemic cardiomyopathy [facility] [facility] [address] I42.8 ; Bradycardia R00.1 [place] [address] and Pacemaker Z95.0 IMMUNIZATIONS No Known Immunizations SOCIAL HISTORY Never Assessed REASON FOR 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 [facility] VISIT0 PLAN OF CARE Activity Details Follow Up 1 Week after procedure Reason: VITAL SIGNS Height 55 in 2017-09-11 Weight 90.0 lbs 2017-09-11 BMI 20.92 kg/m2 2017-09-11 Oximetry 94 % 2017-09-11 Heart Rate 73 /min 2017-09-11 Blood pressure systolic 143 mm Hg 2017-09-11 Blood pressure diastolic 60 mm Hg 2017-09-11 MEDICATIONS Medication Instructions Dosage Frequency Start End Duration Status Date Date Loratadine 10 MG Orally Once a 1 tablet 24h Active day Carvedilol 3.125 Orally bid 1 tqab 12h Active MG Tramadol HCl 50 MG Orally prn 1 tablet Active as needed Spironolactone 25 Orally Once a 1 tablet 24h Active MG day with food Levothyroxine Orally Once a 1 tablet 24h Active Sodium 125 MCG day on an empty stomach in the morning Entresto 49-51 MG Orally Twice a 1 tablet 12h Active day Vitamin D 1000 Orally Once a 1 tablet 24h Active UNIT day Hydrocodone 1 tab PRN 5-325mg Active Vitamin E 400 UNIT Orally Once a 1 capsule 24h Active day Furosemide 20 MG Orally Once a 1 tablet 24h Active day Vitamin B 100 MCG Orally qd 1 tab 24h Active Folic Acid 400 MCG Orally Once a 1 tablet 24h Active day RESULTS Name Result Date Reference Range EKG ECGHr ECGSystolicBP ECGDiastolicBP ECGPRInterval ECGQTInterval ECGQTcInterval ECGQRSDuration ECGPWaveAxis ECGQrsWaveAxis ECGTWaveAxis RR_MeanHR RR_DiastolicBP RR_SystolicBP RR_MeanRRInterval RR_MinRRInterval RR_MaxRRInterval RR_NumBeats RR_NumNormalBeats AtriaECW PROCEDURES Procedure Date Ordered Result Body Site ELECTROCARDIOGRAM, COMPLETE September 11, 2017 Ofc Program PM Dual, Staff September 11, 2017 INSTRUCTIONS MEDICATIONS ADMINISTERED No Known Medications MEDICAL (GENERAL) HISTORY Type Description Date Medical History Cardiomyopathy Medical History Pacemaker implantation Medical History Anxiety disorder Medical History Osteoporosis Medical History Paroxysml Atrial fibrillation Medical History Mixed Hyperlipidemia Surgical History Cardiac pacemaker Surgical History Laminectomy Surgical History Hysterectomy Surgical History Appendectomy Surgical History carpal tunnel Surgical History Cataract removal
--- OUTSIDE RECORDS SUMMARY | 2017-11-23 18:42 | External Medical Summary ---
:1930 Author Organization [facility] Address [address] [place] [address] Care Team Providers Name Role Phone Alysha Jerez Unavailable Unavailable PROBLEMS Type Condition ICD9-CM Code [id number] Onset Condition SNOMED Code Code Dates Status Problem Non-ischemic I42.8 Active 27469300 cardiomyopathy Problem Pacemaker Z95.0 Active [id number] ALLERGIES No Information ENCOUNTERS Encounter Location Date Diagnosis [address] Oct, [facility] [address] [place] [address] [facility] [address] [facility] September, [address] [place] [address] [facility] [address] [facility] September, [address] [place] [address] September, Non-ischemic cardiomyopathy [facility] [address] I42.8 ; Bradycardia [address] [place] [address] and Pacemaker Z95.0 IMMUNIZATIONS No Known Immunizations SOCIAL HISTORY Never Assessed REASON FOR VISIT DEVICE UPGRADE TO BiV ICD PLAN OF CARE VITAL SIGNS MEDICATIONS Unknown Medications RESULTS No Results PROCEDURES No Known procedures INSTRUCTIONS MEDICATIONS ADMINISTERED No Known Medications MEDICAL (GENERAL) HISTORY Type Description Date Medical History Cardiomyopathy Medical History Pacemaker implantation Medical History Anxiety disorder Medical History Osteoporosis Medical History Paroxysml Atrial fibrillation Medical History Mixed Hyperlipidemia Surgical History Cardiac pacemaker Surgical History Laminectomy Surgical History Hysterectomy Surgical History Appendectomy Surgical History carpal tunnel Surgical History Cataract removal
--- NOTE | 2017-11-23 18:45 | Emergency Department Report ---
Asthma HPI - General Stated Complaint: dizzy, soa Time Seen by Provider: 11/23/17 18:45 Source: patient, electronic lab technician Mode of arrival: ambulatory Limitations: no limitations - History of Present Illness HPI Narrative: 87 YO F presents to ED with complaint of feeling SOA and dizziness which started at 1630 today. Says last time she had these symptoms she had low potassium which was 6-24-18. Hx. of cardiomyopathy with ejection fraction of <20 %. Patient was treated with potassium in the ER and dismissed with 3 days of 40meq of potassium. Patient was to follow up with PCP or cardiology but says she did not. Patient has pacemaker/defibrillator place recently but does not have a card with her (says they sent out a card with the wrong name and has not sent a new card). Denies fever, chills, CP, cough, nausea, vomiting, abdominal pain, swelling in extremities or face or weight change. MD complaint: shortness of breath - Related Data Home Medications Medication Instructions Recorded Confirmed Levothyroxine Tab [Synthroid] 125 mcg PO DAILY 03/05/17 11/25/17 Vitamin E 400 unit PO DAILY 04/25/17 11/25/17 Ascorbate Calcium [Vitamin C] 500 mg PO DAILY 09/14/17 11/25/17 SACUBITRIL/VALSARTAN 49/51mg 2 tab PO DAILY 09/14/17 11/25/17 [ENTRESTO 49/51mg] Spironolactone [Aldactone 25 mg] 25 mg PO DAILY 09/14/17 11/25/17 Aspirin [Iván Chewable Aspirin] 81 mg PO DAILY 11/01/17 11/25/17 Cholecalciferol (Vitamin D3) 1,000 unit PO DAILY 11/01/17 11/25/17 [Vitamin D3] Hydrocodone/APAP 5/325 [[place] 1 tab PO Q4H PRN 11/01/17 11/25/17 5/325] Metolazone [Zaroxolyn] 2.5 mg PO DAILY 11/01/17 11/25/17 Vitamin B12 1 tab PO DAILY 11/23/17 11/25/17 Previous Rx's Medication Instructions Recorded Omeprazole 20 mg PO ACB #30 tab 09/15/17 Potassium Chloride 20 meq PO DAILY #30 tab.er.prt 11/24/17 Allergies Allergy/AdvReac Type Severity Reaction Status Date / Time No Known Drug Allergies Allergy Unknown Verified 11/25/17 11:00 Review of Systems All systems: reviewed and negative except as stated Constitutional: Reports: as per HPI, other (dizzy) Respiratory: Reports: as per HPI, dyspnea PFSH Patient Stated Medical History Migraine Yes: none recently Peripheral Neuropathy Yes Cataracts Yes: right Dysphagia Yes Angina Yes: takes NTG prn--last Apr 2018 Cardiac Arrhythmia Yes: atrial fib Congestive Heart Failure Yes Coronary Artery Disease Yes Hypertension Yes Other Cardiology Yes: cardiomyopathy Sleep Apnea No Gastroesophageal Reflux Yes Disease Ulcer Yes Other GI Yes: gastroparesis; esophageal stricture Hx Kidney Stones Yes Hx Renal Disease Yes Hx Urinary Tract Infection Yes Other Musculoskeletal Yes: osteoporosis, arthritis Shingles Yes Depression Yes: hx of Medical History Updates: Hypertension. Peripheral neuropathy. Dysphagia. A- fib. CHF - EF ~20%. Hypokalemia. CAD. Cardiomyopathy. GERD. Esophageal strictures. History of frequent UTIs. Osteopenia. Osteoarthritis. History of shingles. History of depression. Back pain. Surgical History: [facility] 04/2001. Laminectomy. Hysterectomy. Appendectomy. carpel tunnel release - Social History Smoking status: Former smoker Substance use type: does not use Alcohol intake frequency: does not drink Housing: house Household members: none Current occupational status: disabled, retired Does patient use chewing tobacco?: No Current residence: Apartment/Private Home Physical Exam - Limitations Limitations: no limitations - General General appearance: alert, in no apparent distress - Normal Exams: Head:: Normocephalic without trauma Eyes:: Pupils are PERRLA w/ EOMI, No scleral icterus, irritation ENMT:: No facial trauma, nasal exudates, pharyngeal erythema Neck:: Full range of motion, without adenopathy Chest/Respirations:: Clear all mina, with good airflow, and symmetry bilaterally Cardiovascular:: Regular rate and rhythm Musculoskeletal:: good range of motion, all extremities Neurological:: Patient is alert, and oriented, cranial nerves, motor/sensory/ cerebellar, exams w/o gross deficits Psychiatric:: Patient exhibits, appropriate attention, emotion and affect Course - Consultations Consultation #1: I discussed patient's HPI, past medical history, vital signs, labs, EKG, chest x -ray and treatment in the ER with Crissy Casas APRN for Dr. Travis. Crissy spoke with Dr. Travis who would like patient admitted for hypokalemia and would like hospitalist service to manage. Dr. Travis will consult on CHF and cardiomyopathy. Consultation #2: I discussed patient's HPI, past medical history, EKG, labs, chest x-ray, vital signs, treatment in ER and conversation I had with Dr. ROSS needs mid-level with Dr. Lomas hasn't. will admit patient observation status on telemetry. Dyspnea - MDM Narrative Medical decision making narrative: CBC unremarkable NA 147 K 2.7 creatinine stable from previous ProBNP 13,300 previous 4720 on 11-01-17 Patient SpO2 has been 96-98% CXR does not show infiltrate or CHF EKG shows that patient is electronic ventricularly paced I discussed conversation I had with Crissy Casas APRN and patient agrees with admission to the hospital. Patient is admitted to the hospital for treatment of hypokalemia and to monitor heart rhythm. - Differential Diagnosis Differential diagnosis: Likely: PE, Pneumonia, Pulmonary edema systolic, Pulmonary edema dystolic (, hypokalemia) - Medical Records Attestation: I reviewed the patient's medical records. - Lab Data Attestation: I reviewed the patient's lab results. Result diagrams: 11/24/17 03:58 11/24/17 03:58 - Radiology Data Attestation: I reviewed the patient's radiology results. CXR: No infiltrate or CHF (Dr. John) Disposition Clinical Impression: Hypokalemia Cardiomyopathy Qualifiers: Cardiomyopathy type: other Qualified Code(s): I42.8 - Other cardiomyopathies Systolic CHF Qualifiers: Heart failure chronicity: chronic Qualified Code(s): I50.22 - Chronic systolic (congestive) heart failure Disposition: [facility] Condition: Stable - Seen By: midlevel
[2017-11-23] MEDS ORDERED: SALINE FLUSH 10ml SYRINGE IVF PRN (18:54)
[2017-11-23] MEDS ORDERED: LIDOCAINE 1% INJ 10 MG, POTASSIUM CHLORIDE INJ 10 MEQ in NS 100 ML IV SCH (19:30)
[2017-11-23] MEDS ORDERED: HYDROCODONE/APAP 5mg/325mg TABLET PO PRN (22:03)
[2017-11-23] MEDS ORDERED: ACETAMINOPHEN 650 MG SUPPOSITORY PR PRN (22:03)
[2017-11-23] MEDS ORDERED: ONDANSETRON 4 MG/2 ML INJECTION IVP PRN (22:03)
[2017-11-23 22:05] VITALS: BMI 17.9
[2017-11-23] MEDS: ENOXAPARIN 40 MG/0.4 ML INJECTION SQ SCH (22:18)
[2017-11-23] MEDS ORDERED: FALL RISK - PHARMACY CONSULT MC ONE (22:24)
[2017-11-23] MEDS: SALINE FLUSH 10ml SYRINGE IV PRN (23:26)
[2017-11-23] MEDS: LIDOCAINE 1% INJ 10 MG, POTASSIUM CHLORIDE INJ 10 MEQ in NS 100 ML IV SCH (23:27)
[2017-11-23] MEDS ORDERED: ALBUTEROL/IPRATROPIUM 2.5mg-0.5mg/3ml NEB AEROSOL PRN (23:49)
[2017-11-24] MEDS: LIDOCAINE 1% INJ 10 MG, POTASSIUM CHLORIDE INJ 10 MEQ in NS 100 ML IV SCH ×2 (00:39→01:46)
[2017-11-24] MEDS: SALINE FLUSH 10ml SYRINGE IV PRN (02:50)
--- NOTE | 2017-11-24 05:16 | History & Physical Report ---
History of Present Illness Date: 11/24/17 Chief complaint: dizziness HPI: This is a 87 y/o female with a known hx of ischemic cardiomyopathy with an EF of 20%. The patient as an AICD. The patient noted increased dizziness and shortness of breath and presents to the ED tonight for evaluation. Sx seemed to come on suddenly. Note that 3 weeks ago she was evaluated in [facility] ED for similar sx and had a potassium of 2.2 The ed replaced and recommended admission which she declined her AICD was interrogated and was unremarkable. The patient today had reocurrance of hypokalemia. She is on diuretic therapy which can contribute to her sx. She was not replaced with K. The pateint will be admitted to the hospital to replace her K and to monitor her rhythm. There is some question regarding heart failure Her BNP signficantly elevated but her CXR was not c/w failure and exam is not c/w failure. ED did discuss with cardiology who will see the patient this am. No additional diuretics were utilized intially. Review of Systems All systems PM: 10-point ROS was reviewed, no additional remarkable complaints except Past Medical History Medical History Updates: Hypertension. Peripheral neuropathy. Dysphagia. A- fib. CHF - EF ~20%. Hypokalemia. CAD. Cardiomyopathy. GERD. Esophageal strictures. History of frequent UTIs. Osteopenia. Osteoarthritis. History of shingles. History of depression. Back pain. Surgical History: [facility] 04/2001. Laminectomy. Hysterectomy. Appendectomy. carpel tunnel release Family History: non contributory in this setting Family History: As Above - Social History Smoking status: Former smoker Substance use type: does not use Alcohol intake frequency: does not drink Household members: none Current occupational status: retired Medications Home Medications Medication Instructions Recorded Confirmed Type Levothyroxine Tab [Synthroid] 125 mcg PO DAILY 03/05/17 11/23/17 History Vitamin E 400 unit PO DAILY 04/25/17 11/23/17 History Ascorbate Calcium [Vitamin C] 500 mg PO DAILY 09/14/17 11/23/17 History SACUBITRIL/VALSARTAN 49/51mg 2 tab PO DAILY 09/14/17 11/23/17 History [ENTRESTO 49/51mg] Spironolactone [Aldactone 25 mg] 25 mg PO DAILY 09/14/17 11/23/17 History Omeprazole 20 mg PO ACB #30 tab 09/15/17 11/23/17 Rx Aspirin [Iván Chewable Aspirin] 81 mg PO DAILY 11/01/17 11/23/17 History Cholecalciferol (Vitamin D3) 1,000 unit PO DAILY 11/01/17 11/23/17 History [Vitamin D3] Hydrocodone/APAP 5/325 [[place] 1 tab PO Q4H PRN 11/01/17 11/23/17 History 5/325] Metolazone [Zaroxolyn] 2.5 mg PO DAILY 11/01/17 11/23/17 History Vitamin B12 1 tab PO DAILY 11/23/17 11/23/17 History Potassium Chloride 20 meq PO DAILY #30 tab.er.prt 11/24/17 Rx Allergies Allergy/AdvReac Type Severity Reaction Status Date / Time No Known Drug Allergies Allergy Unknown Verified 11/23/17 18:53 Exam Vital Signs: Temperature 97.3 F 11/23/17 23:44 Pulse Rate 72 11/24/17 00:00 Respiratory Rate 16 11/23/17 23:44 Blood Pressure 175/62 H 11/23/17 23:44 Pulse Oximetry 100 11/23/17 23:44 Telemetry Rhythm: Sinus Rhythm Height/Weight/BMI: Height 1.37 m Weight 33.8 kg Body Mass Index 17.9 - Constitutional Present: mild distress, well nourished, well developed, thin, cooperative - Routine HEENT Exam Head: Present: normocephalic, atraumatic Eye: Present: EOMI, conjunctivae pink. Absent: conjunctival icterus, scleral injection ENT: Present: mucous membranes dry - Routine Neck Exam Present: full ROM - Routine Respiratory Exam Present: CTA bilaterally - Routine Cardiovascular Exam Present: RRR - Routine Abdominal Exam Present: soft, non distended, non tender - Routine Extremities Exam Present: no edema - Routine Back/Spine/Pelvis Exam Back/Spine: Present: full ROM - Routine Skin Exam Present: intact, dry - Routine Neurological Exam Present: alert, oriented X3, moving all extremities, vision grossly intact, hearing grossly intact, normal speech - Routine Psychiatric Exam Present: normal affect, normal thought process Results - Labs CBC & Chem 7: 11/24/17 03:58 11/24/17 03:58 Labs: reviewed and will be discussed below Assessment and Plan (1) Hypokalemia Current visit: Yes Status: Acute (2) Ischemic cardiomyopathy Current visit: Yes Status: Acute (3) Coronary artery disease Current visit: Yes Status: Chronic (4) CKD (chronic kidney disease) stage 3, GFR 30-59 ml/min Current visit: Yes Status: Acute (5) Hypothyroid Current visit: Yes Status: Acute Assessment and Plan: 1. hypokalemia acute POA: 2/2 diuretic therapy. appreciate that with metolazone would expect some protection, replace and recheck. 2. ischemic cardiomyopathy chronic POA: my examination would not inform acute failure. lungs diminished without rhonchi, no peripheral edema, cxr no acute interstitial process. cardiology will assist in assessment, no additional diuretic therapy to be employed acutely 3. coronary artery disease chronic POA: as a precaution will rule out on tele 4. hypothyroid chroinc POA; continue synthroid 5. DVT pxp : SCD, lovenox Seen and examined patient on same day as the above note. Agree with history, physical, assessment and plan. Comprehensive physical findings correlate to the above note. HPI: this is an 87-year-old woman with history of ischemic heart disease that had sudden episode dizziness weakness malaise and severe breathlessness with no prodrome and this was relieved in the emergency room just as suddenly with initial medications PMH/SH/FH: as per above ROS: no further information from 10 system review Exam: Gen.: a very diminutive woman, no apparent distress, conversant and pleasant HEENT: normocephalic atraumatic, oral mucosa moderately dry neck: no lymphadenopathy no jugular venous distention respiratory: there to auscultation bilaterally with good excursion cardiovascular: cardiovascular S1 S2 no adventitious murmurs rubs or gallops abdomen/GI: soft nondistended with bowel sounds extremities: good peripheral perfusion with no edema skin/integument: no significant injuries or edema neuro: alert and oriented. No focal deficits appreciable psych: mood and affect appear appropriate Labs: reviewed and noting the hypokalemia imaging: no acute processes on chest x-ray EKG: no acute changes Assessment and plan: hypokalemia: case was discussed with nurse practitioner Avril Nuñez in regard to the cardiac function and whether or not the low potassium was responsible for the event. There are no other obvious reasons but the pacemaker could use interrogated on an outpatient basis Ischemic heart disease: Dr. Brooks as ordered and evaluated the repeat echocardiogram Congestive heart failure with ejection fraction of 20%: appears stable by cardiology's assessment PLAN: anticipate discharge later today if no further events. I have discussed the case with Dr. Collado her primary care physician who will see her this week Documented on Dragon speech to text. Efforts to correct speech recognition errors performed, but variation may exist DVT Prophylaxis: SCD's GI Prophylaxis: Protonix Resuscitation Status: Do Not Resuscitate - Time spent with patient Time with patient PN: 35 minutes - Physician Narrative Narrative: Date: 11/24/17 Time: 512 Hospital Course Summary Disclaimer: The visit summary below is not to be considered part of the above Progress Note.
[2017-11-24] MEDS: 1/2 NS with KCL 20mEq 1,000 ML IV SCH ×2 (05:25→15:41)
[2017-11-24] MEDS ORDERED: NON-FORMULARY MEDICATION 1 EACH EACH (Omeprazole [Omeprazole] 20 MG) PO SCH (06:30)
[2017-11-24] MEDS ORDERED: OMEPRAZOLE 20 MG CAPSULE PO SCH (06:30)
[2017-11-24] MEDS ORDERED: LEVOTHYROXINE 125 MCG TABLET PO SCH (07:00)
[2017-11-24 07:29] VITALS: RESP 18; TEMP 96.9
--- NOTE | 2017-11-24 07:54 | XRay Report ---
INDICATION: SOA PROCEDURE: CHEST 2-VIEWS UPRIGHT (PA & LAT) Encounter: Initial COMPARISON: September 15, 2017 FINDINGS: Improving aeration of the lungs with resolution of the prior infiltrates and effusions. Mild hyperinflation. No pneumothorax or focal consolidation. Heart size and mediastinal contours are within normal limits. Left pacemaker defibrillator. Pulmonary vascularity appears normal. Impression: No pneumonia or CHF. .
[2017-11-24] MEDS: ENOXAPARIN 40 MG/0.4 ML INJECTION SQ SCH (08:30)
[2017-11-24] MEDS ORDERED: ASPIRIN 81 MG CHEWABLE TABLET PO SCH (09:00)
[2017-11-24] MEDS ORDERED: POLYETHYL GLYCOL 3350 17gm PACKET PO SCH (09:00)
[2017-11-24] MEDS ORDERED: SACUBITRIL/VALSARTAN 49/51mg TABLET PO SCH (09:00)
[2017-11-24] MEDS ORDERED: SPIRONOLACTONE 25 MG TABLET PO SCH (09:00)
--- NOTE | 2017-11-24 10:31 | Cardiology Consult Note ---
History of Present Illness Consult date: 11/24/17 Requesting physician: Rc Weaver Consult reason: congestive heart failure Chief complaint: dyspnea History of present illness: Trish is a 87 year old female who is well known to Dr. Travis's practice with a known history of CAD, ischemic cardiomyopathy, [facility] PPM/ AICD, PAF, nonrheumatic MV insufficiency, and HLD who noted increased dizziness and SOA and presented to the ED for evaluation. Her symptoms reportedly came on suddenly, however she was evaluated in the ED for similar symptoms three weeks ago. She reportedly had a potassium of 2.2, the ED replaced and recommended admission which she declined. Upon arrival her K+ was 2.7 and she was admitted to the hospital to replace her K and [place]. [place] [address] but CXR was negative for pneumonia or CHF. Dr Parrish is consulted for further evaluation of CHF and we appreciate the consult. Last Echo 10/28/17: EF 40%, mild LVH, global LV hypokinesis, mod LAE, trace AI, mild-mod MR/TR, PASP 35mmHg, trace PI. Last cath 03/06/17: LVEDP 8mmHg, Mid LAD 60%, no other significant disease Review of Systems - Constitutional Constitutional: Present: fatigue, weakness. Absent: chills, fever(s) - EENMT Eyes: Absent: change in vision Balance: Absent: vertigo Mouth/Throat: Absent: sore throat - Cardiovascular Cardiovascular: Present: dyspnea on exertion. Absent: chest pain, palpitations , syncope, edema, heart murmur Vascular: Absent: pedal edema - Respiratory Respiratory: Present: dyspnea, dyspnea on exertion. Absent: cough - Gastrointestinal Gastrointestinal: Absent: diarrhea, nausea, vomiting - Genitourinary Genitourinary: Absent: dysuria - Integumentary/Breasts Integumentary: Absent: rash - Neurological Neurological: Present: dizziness - Endocrine Endocrine: Absent: palpitations PFSH Patient Stated Medical History Migraine Yes: none recently Peripheral Neuropathy Yes Cataracts Yes: right Dysphagia Yes Angina Yes: takes NTG prn--last Apr 2018 Cardiac Arrhythmia Yes: atrial fib Congestive Heart Failure Yes Coronary Artery Disease Yes Hypertension Yes Other Cardiology Yes: cardiomyopathy Sleep Apnea No Gastroesophageal Reflux Yes Disease Ulcer Yes Other GI Yes: gastroparesis; esophageal stricture Hx Kidney Stones Yes Hx Renal Disease Yes Hx Urinary Tract Infection Yes Other Musculoskeletal Yes: osteoporosis, arthritis Shingles Yes Depression Yes: hx of Medical History Updates: Hypertension. Peripheral neuropathy. Dysphagia. A- fib. CHF - EF 40%. Hypokalemia. CAD. Cardiomyopathy. GERD. Esophageal strictures. History of frequent UTIs. Osteopenia. Osteoarthritis. History of shingles. History of depression. Back pain. Surgical History: PPM 04/2001. Laminectomy. Hysterectomy. Appendectomy. carpel tunnel release Family History: Brother - CA, unknown type, cause of Sister - CA, bone, cause of - Social History Smoking status: Former smoker Substance use type: does not use Alcohol intake frequency: does not drink Housing: house Household members: none Current occupational status: retired Does patient use chewing tobacco?: No Current residence: Apartment/Private Home Medications Home Medications Medication Instructions Recorded Confirmed Type Levothyroxine Tab [Synthroid] 125 mcg PO DAILY 03/05/17 11/25/17 History Vitamin E 400 unit PO DAILY 04/25/17 11/25/17 History Ascorbate Calcium [Vitamin C] 500 mg PO DAILY 09/14/17 11/25/17 History SACUBITRIL/VALSARTAN 49/51mg 2 tab PO DAILY 09/14/17 11/25/17 History [ENTRESTO 49/51mg] Spironolactone [Aldactone 25 mg] 25 mg PO DAILY 09/14/17 11/25/17 History Omeprazole 20 mg PO ACB #30 tab 09/15/17 11/25/17 Rx Aspirin [Iván Chewable Aspirin] 81 mg PO DAILY 11/01/17 11/25/17 History Cholecalciferol (Vitamin D3) 1,000 unit PO DAILY 11/01/17 11/25/17 History [Vitamin D3] Hydrocodone/APAP 5/325 [[place] 1 tab PO Q4H PRN 11/01/17 11/25/17 History 5/325] Metolazone [Zaroxolyn] 2.5 mg PO DAILY 11/01/17 11/25/17 History Vitamin B12 1 tab PO DAILY 11/23/17 11/25/17 History Potassium Chloride 20 meq PO DAILY #30 tab.er.prt 11/24/17 11/25/17 Rx Allergies Allergy/AdvReac Type Severity Reaction Status Date / Time No Known Drug Allergies Allergy Unknown Verified 11/25/17 11:00 Exam Vital signs: Temperature 96.9 F 11/24/17 07:25 Pulse Rate 67 11/24/17 07:59 Respiratory Rate 18 11/24/17 07:25 Blood Pressure 165/62 H 11/24/17 07:25 Pulse Oximetry 100 11/24/17 07:25 - Constitutional no acute distress, cachectic, cooperative - Routine HEENT Exam Head: Present: normocephalic ENT: Present: mucous membranes moist - Routine Neck Exam Absent: JVD, carotid bruit - Routine Chest/Breast/Axilla Exam Chest wall: Present: pacemaker. Absent: tenderness - Routine Respiratory Exam Present: CTA bilaterally. Absent: rales, wheezes - Routine Cardiovascular Exam Present: RRR, no murmur - Routine Abdominal Exam Present: soft, non tender - Routine Extremities Exam Present: no edema, pulses intact - Routine Skin Exam Present: intact, dry, warm - Routine Neurological Exam Present: alert, oriented X3 - Routine Psychiatric Exam Present: normal affect, normal thought process Results 11/24/17 03:58 11/24/17 03:58 Cardiac Enzymes 11/23/17 11/23/17 11/24/17 Range/Units 18:46 22:32 03:58 AST 33 (14-36) U/L Troponin I 0.046 0.050 0.077 (0-0.12) ng/ml CBC 11/23/17 11/24/17 Range/Units 18:46 03:58 WBC 6.0 5.2 (4.5-11.0) T/MM3 RBC 4.21 3.76 L (4.00-5.20) M/MM3 Hgb 11.6 L 10.4 L (12-16) GM/DL Hct 36.2 32.7 L (36-46) % Plt Count 321 257 (130-400) T/MM3 Neut # (Auto) 3.7 3.1 (1.8-7.7) T/MM3 Lymph # (Auto) 1.7 1.5 (1-4.8) T/MM3 [place] # (Auto) 0.3 0.3 (0-0.8) T/MM3 Eos # (Auto) 0.2 0.2 (0-0.5) T/MM3 Baso # (Auto) 0.0 0.0 (0-0.2) T/MM3 Comprehensive Metabolic Panel 11/23/17 11/24/17 Range/Units 18:46 03:58 Sodium 147 H 149 H (136-146) MEQ/L Potassium 2.7 L* 3.2 L D (3.6-5) MEQ/L Chloride 103 111 H D (98-107) MEQ/L Carbon Dioxide 28 27 (22-30) MEQ/L BUN 33.0 H 32.0 H (7-17) MG/DL Creatinine 1.6 H 1.3 H D (0.7-1.2) mg/dL Glucose 121 H 82 (65-110) MG/DL Calcium 10.0 8.7 D (8.4-10.2) MG/DL AST 33 (14-36) U/L ALT 18 (1-35) U/L Alkaline Phosphatase 82 (38-126) U/L Total Protein 7.6 (6.3-8.2) g/dL Albumin 4.4 (3.5-5.0) g/dL Intake and Output 11/23/17 11/24/17 11/24/17 22:59 06:59 14:59 Intake Total 500 / 500 300 / 300 Output Total 675 / 675 50 / 50 Balance 500 / 500 -375 / -375 -50 / -50 Intake: IV 500 / 500 300 / 300 Lidocaine 1% Inj 10 mg 300 / 300 Potassium Chloride Inj 10 meq In Ns 100 ml @ 100 mls/hr IV . Q1H RANDY Rx#:[id number] NS 500ml 500 ml @ 999.9 mls/hr 500 / 500 IV .Q30M ONE Rx#:[id number] Output: Urine 675 / 675 50 / 50 Other: Urine Appearance Clear Clear Urine Color [place] Urine Odor Normal Normal # Voids 1 1 Weight 74 lb 8.26 oz 74 lb 8.26 oz Patient Weight 11/25/17 06:59 Weight 74 lb 8.26 oz - Imaging and Cardiology Imaging & Cardiology Narrative: Date of Exam: 11/23/17 Ordering Provider: Lamar Hankins APRN Type of Exam(s): XR chest 2V Reason for Exam(s): SOA INDICATION: SOA PROCEDURE: CHEST 2-VIEWS UPRIGHT (PA & LAT) Encounter: Initial COMPARISON: September 15, 2017 FINDINGS: Improving aeration of the lungs with resolution of the prior infiltrates and effusions. Mild hyperinflation. No pneumothorax or focal consolidation. Heart size and mediastinal contours are within normal limits. Left pacemaker defibrillator. Pulmonary vascularity appears normal. Impression: No pneumonia or CHF. 11/24/17 10:34 11/26/17 11:42 Date of Exam: 11/24/17 Type of Exam(s): US echo doppler complete DATE OF PROCEDURE 11/24/2017 PROCEDURE PERFORMED 2D echocardiography, M-mode assessment, full color spectral Doppler assessment. FINDINGS 1. LEFT VENTRICLE. Left ventricle is mildly enlarged. Normal left ventricular wall thickness noted. Left ventricular systolic function is significantly reduced. Estimated ejection fraction is 30-35%. Unable to accurately assess diastolic function on today's study. 2. RIGHT VENTRICLE. Right ventricle appears normal in size. Normal RV wall thickness noted. Normal right ventricular systolic function noted. There is a device wire noted in the right ventricle. 3. RIGHT ATRIUM. Right atrium appears mildly dilated. There is a device wire noted in the right atrium. 4. LEFT ATRIUM. Left atrium appears severely dilated. 5. MITRAL VALVE. There is mitral annular dilatation noted. Normal mitral valve thickness noted. There is moderate functional mitral regurgitation noted. No significant mitral stenosis noted. 6. AORTIC VALVE. Aortic valve poorly visualized on today's study. Trace aortic regurgitation noted. No significant aortic stenosis noted. 7. TRICUSPID VALVE. Tricuspid valve appears structurally normal. There is mild tricuspid regurgitation noted. 8. PULMONIC VALVE. Pulmonic valve poorly visualized on today's study. Trivial pulmonic regurgitation noted. 9. INFERIOR VENA CAVA. Inferior vena cava appears normal in size. Normal respirophasic variation noted. 10. PULMONARY ARTERY. Estimated pulmonary artery systolic pressure is about 35- 40 mmHg. CONCLUSION 1. Severely reduced LV systolic function, estimated left ventricular ejection fraction 30-35%. 2. Normal RV function. 3. Moderate mitral regurgitation noted. 4. IVC normal in size with normal respirophasic variation noted. 5. Pulmonary artery systolic pressure is 35-40 mmHg. EKG interpretations - SD, pacemaker, normal Pacemaker: ventricular pacing w/capture (except when refractory) Assessment and Plan - Assessment and Plan (1) Hypokalemia Status: Acute Replaced per hospitalist - Multiple recent ED and hospital visits for hypokalemia, likely need small supplement despite spironolactone, with follow up lab - Mag WNL (2) Chronic systolic (congestive) heart failure Status: Chronic BNP 20179 - appears euvolemic on exam, no orthopnea, JVD or edema (3) Cardiomyopathy Problem details: Non ischemic Status: Chronic Has [facility] Bi V/ICD - interrogate when rep available - Continue Entresto 49/51mg BID (4) PAF (paroxysmal atrial fibrillation) Status: Chronic (5) Presence of cardiac pacemaker Problem details: [facility] Status: Chronic (6) Coronary artery disease Status: Chronic Continue Aspirin, ARNI, (7) Nonrheumatic mitral valve insufficiency Status: Chronic stable, routine monitoring (8) Mixed hyperlipidemia Status: Chronic - Assessment and Plan Hypokalemia Current visit: Yes Status: Acute - Replaced per hospitalist - Multiple recent ED and hospital visits for hypokalemia, likely need small supplement despite spironolactone, with follow up lab - Mag WNL Chronic systolic (congestive) heart failure Current visit: Yes Status: Chronic - BNP 19039 - appears euvolemic on exam, no orthopnea, JVD or edema Cardiomyopathy Problem details: Non ischemic Current visit: Yes Status: Chronic - Has [facility] Bi V/ICD - interrogate when rep available - Continue Entresto 49/51mg BID PAF (paroxysmal atrial fibrillation) Current visit: No Status: Chronic Presence of cardiac pacemaker Problem details: [facility] Current visit: No Status: Chronic Coronary artery disease Current visit: Yes Status: Chronic - Continue Aspirin, ARNI, Nonrheumatic mitral valve insufficiency Current visit: Yes Status: Chronic - stable, routine monitoring Mixed hyperlipidemia Current visit: Yes Status: Chronic Thank you for allowing us to participate in the care of this patient. Hospital Course Summary Disclaimer: The visit summary below is not to be considered part of the above Progress Note.
[2017-11-24 11:48] VITALS: BP 152/59; PULSE 63; O2SAT 99
--- NOTE | 2017-11-24 15:11 | Discharge Summary ---
Discharge Information Date of admission: 11/23/17 20:47 Anticipated date of discharge: 11/24/17 Attending Physician: Rc Weaver MD Primary care physician: Terrance Collado II, MD Consults: 11/23/17 20:49 Physician Consult [CONS] Routine Consulting Provider: Fabiano Travis Reason For Exam: chf Ordering Provider has Notified Skidder Loader: Yes Comment: FOREST MANAGER - Laboratory Labs: 11/24/17 03:58 11/24/17 03:58 History of Present Illness HPI: This is a 87 y/o female with a known hx of ischemic cardiomyopathy with an EF of 20%. The patient as an AICD. The patient noted increased dizziness and shortness of breath and presents to the ED tonight for evaluation. Sx seemed to come on suddenly. Note that 3 weeks ago she was evaluated in [facility] ED for similar sx and had a potassium of 2.2 The ed replaced and recommended admission which she declined her AICD was interrogated and was unremarkable. The patient today had reocurrance of hypokalemia. She is on diuretic therapy which can contribute to her sx. She was not replaced with K. The pateint will be admitted to the hospital to replace her K and to monitor her rhythm. There is some question regarding heart failure Her BNP signficantly elevated but her CXR was not c/w failure and exam is not c/w failure. ED did discuss with cardiology who will see the patient this am. No additional diuretics were utilized intially. Objective Vital signs: Temperature 96.9 F 11/24/17 11:47 Pulse Rate 63 11/24/17 11:47 Respiratory Rate 18 11/24/17 11:47 Blood Pressure 152/59 H 11/24/17 11:47 Pulse Oximetry 99 11/24/17 11:47 Rhythm: [place]andering Atrial Pacemaker Height/Weight/BMI: Height 4 ft 6 in Weight 33.8 kg Body Mass Index 17.9 - Constitutional Present: well nourished, well developed - Routine HEENT Exam Eye: Present: EOMI ENT: Present: mucous membranes moist, dentition normal - Routine Respiratory Exam Present: CTA bilaterally. Absent: wheezes - Routine Cardiovascular Exam Present: RRR. Absent: murmur - Routine Abdominal Exam Present: soft, normoactive bowel sounds, non distended. Absent: tenderness - Routine Extremities Exam Present: normal capillary refill - Routine Skin Exam Present: dry, warm - Routine Neurological Exam Present: alert, oriented X3, CN II-XII intact - Routine Lymphatic Exam Lymphatic: Absent: adenopathy - Routine Psychiatric Exam Present: normal affect Hospital Course This is a general summary of the patient's hospital course. For more details refer to the complete medical record. Hospital course: Patient was responsive to initial treatment. Potassium climbed from 2.7 up to 3.3 after 40 mEq. Replacement with another 40 mEq orally was done after the lab work was performed. The patient remain stable in observation throughout the course the day. Dr. Collado's office was contacted for consideration of alternative reasons for this event. At this time this appears to be primarily secondary to her hypokalemia. Hypokalemia: case was discussed with nurse practitioner Avril Nuñez in regard to the cardiac function and whether or not the low potassium was responsible for the event. There are no other obvious reasons but the pacemaker could use interrogated on an outpatient basis Ischemic heart disease: Dr. Brooks as ordered and evaluated the repeat echocardiogram Congestive heart failure with ejection fraction of 20%: appears stable by cardiology's assessment initially thought to be more fluid overloaded however physical exam did not show any evidence of fluid that would require further diuresis Time spent with patient: greater than 35 minutes Discharge Plan - Discharge Disposition Discharge Date: 11/24/17 Disposition: 01 Discharged Home, Self-Care *Condition: Stable Reason For Visit (Visit label in EMR): hypokalemia - Discharge Medications *Discharge Medications: New Potassium Chloride 20 meq PO DAILY #30 tab.er.prt Continue Vitamin E 400 unit PO DAILY Ascorbate Calcium [Vitamin C] 500 mg PO DAILY Spironolactone [Aldactone 25 mg] 25 mg PO DAILY SACUBITRIL/VALSARTAN 49/51mg [ENTRESTO 49/51mg] 2 tab PO DAILY Omeprazole 20 mg PO ACB #30 tab Cholecalciferol (Vitamin D3) [Vitamin D3] 1,000 unit PO DAILY Hydrocodone/APAP 5/325 [[place] 5/325] 1 tab PO Q4H PRN PRN Reason: Pain Aspirin [Iván Chewable Aspirin] 81 mg PO DAILY Vitamin B12 1 tab PO DAILY Levothyroxine Tab [Synthroid] 125 mcg PO DAILY Metolazone [Zaroxolyn] 2.5 mg PO DAILY - Discharge Packet/Instructions *Diet: cardiac diet *Activity: ass prior *Pain Management/Treatment: OTC as needed *Wound Care: none *Expected Signs/Symptoms: Return the hospital of symptoms of dizziness and weakness recur *Notify Physician if: Symptoms return *During Business Hours Contact: Primary care or emergency room depending upon severity *After Business Hours Contact: Emergency room *Pending Lab/Results: Follow up w/your PCP - Referrals/Follow Up *Referrals/Follow Up: Fabiano Travis MD [Physician] - Terrance Collado II, MD [Primary Care Provider] - 2 Days (11/26/17 at 1:45 PM shannan.) Teddy Starr MD [Physician] - 1 Day (11/25/17 at 11:15AM) - Patient Handouts - Dismissal Complete Discharge Instructions are:: Complete Physician Narrative - Narrative Physician: other Attestation Narrative: Date: 11/24/17 Time: 9971
--- NOTE | 2017-11-25 16:01 | Echocardiogram ---
DATE OF PROCEDURE 11/24/2017 PROCEDURE PERFORMED 2D echocardiography, M-mode assessment, full color spectral Doppler assessment. FINDINGS 1. LEFT VENTRICLE. Left ventricle is mildly enlarged. Normal left ventricular wall thickness noted. Left ventricular systolic function is significantly reduced. Estimated ejection fraction is 30-35%. Unable to accurately assess diastolic function on today's study. 2. RIGHT VENTRICLE. Right ventricle appears normal in size. Normal RV wall thickness noted. Normal right ventricular systolic function noted. There is a device wire noted in the right ventricle. 3. RIGHT ATRIUM. Right atrium appears mildly dilated. There is a device wire noted in the right atrium. 4. LEFT ATRIUM. Left atrium appears severely dilated. 5. MITRAL VALVE. There is mitral annular dilatation noted. Normal mitral valve thickness noted. There is moderate functional mitral regurgitation noted. No significant mitral stenosis noted. 6. AORTIC VALVE. Aortic valve poorly visualized on today's study. Trace aortic regurgitation noted. No significant aortic stenosis noted. 7. TRICUSPID VALVE. Tricuspid valve appears structurally normal. There is mild tricuspid regurgitation noted. 8. PULMONIC VALVE. Pulmonic valve poorly visualized on today's study. Trivial pulmonic regurgitation noted. 9. INFERIOR VENA CAVA. Inferior vena cava appears normal in size. Normal respirophasic variation noted. 10. PULMONARY ARTERY. Estimated pulmonary artery systolic pressure is about 35- 40 mmHg. CONCLUSION 1. Severely reduced LV systolic function, estimated left ventricular ejection fraction 30-35%. 2. Normal RV function. 3. Moderate mitral regurgitation noted. 4. IVC normal in size with normal respirophasic variation noted. 5. Pulmonary artery systolic pressure is 35-40 mmHg. MTDD
== END 2017-11-24 16:30 | disposition home or self-care (01) ==
LOC: ED 18:25 → EDHOLD 18:25 → MED 21:55
PROVIDERS: ADMIT Emergency Medicine; ATTEND Family Medicine

== ENCOUNTER 2017-12-22 13:41 | Observation (INO) ==
[2017-12-22] MEDS ORDERED: SALINE FLUSH 10ml SYRINGE IVF PRN (14:36)
[2017-12-22] MEDS ORDERED: MECLIZINE 12.5 MG TABLET PO PRN (15:05)
--- NOTE | 2017-12-22 15:28 | Emergency Department Report ---
Dizziness HPI - General Chief Complaint: Dizziness <Panfilo Dupont Q - 12/23/17 13:32> Stated Complaint: dizziness <Panfilo Dupont Q - 12/23/17 13:32> Source: patient <Anu Hill 12/22/17 15:28> Mode of arrival: ambulatory <Anu Hill 12/22/17 15:28> Limitations: no limitations <Anu Hill 12/22/17 15:28> - History of Present Illness HPI Narrative: Patient is an 87-year-old female who sees Dr. Collado. Patient went to see her doctor this morning but was sent to the emergency department for further evaluation due to the length and description of her symptoms. She reports a history of chronic dizziness and/or vertigo but presents today with prolonged dizziness for the past 2 days. Patient states that normally her dizziness is intermittent however this has been more constant for the past 2 days and even exists lying flat. Patient denies any other neurological symptoms. She does state she had a mild headache this morning but that is gone now. She has been able to ambulate without falls with the use of her walker. The patient does reside independently she is alert oriented and appropriate. She does have a history of ischemic cardiomyopathy with an AICD placed. Was recently hospitalized in November due to hypokalemia related to her diet or recent required for her CHF. Patient denies chest pain and states her SOA is no worse than usual . Her primary complaint is only of the dizziness. No other neurological symptoms. We were given a copy of the EKG that was done at the clinic just before arrival and it shows electronic ventricular pacemaker; this EKG was not repeated. Neurological exam was unremarkable and head CT was without acute abnormality. Troponin and electrolytes were all stable. Creatinine was elevated at 2.5 which is increased from 1.3 in November and is significantly elevated based on prior lab results. Patient does take lasix and reports normal pattern of urination. Orthostatic vital signs were completed upon arrival and were negative for orthostasis and symptoms were not exacerbated with position changes. <Anu Hill 12/22/17 15:41> MD complaint: dizziness <Anu Hill 12/22/17 15:41> Onset (ago): day(s) (2) <Anu Hill - 12/22/17 15:41> Timing: gradual onset, constant <Anu Hill - 12/22/17 15:41> Description: other (feels that she is moving ) <Anu Hill - 12/22/17 15 :41> - Related Data Home Medications Medication Instructions Recorded Confirmed Levothyroxine Tab [Synthroid] 125 mcg PO DAILY 03/05/17 12/22/17 Vitamin E 400 unit PO DAILY 04/25/17 12/22/17 SACUBITRIL/VALSARTAN 49/51mg 1 tab PO BID 09/14/17 12/22/17 [ENTRESTO 49/51mg] Aspirin [Iván Chewable Aspirin] 81 mg PO DAILY 11/01/17 12/22/17 Cholecalciferol (Vitamin D3) 1,000 unit PO DAILY 11/01/17 12/22/17 [Vitamin D3] Hydrocodone/APAP 5/325 [[place] 1 tab PO DAILY PRN 11/01/17 12/22/17 5/325] Metolazone [Zaroxolyn] 2.5 mg PO DAILY 11/01/17 12/22/17 Cyanocobalamin (Vitamin B-12) 2,500 mcg PO DAILY 12/07/17 12/22/17 [Vitamin B12] Ascorbic Acid [Vitamin C] 500 mg PO DAILY 12/22/17 12/22/17 Potassium Chloride 20 meq PO DAILY 12/22/17 12/22/17 Previous Rx's Medication Instructions Recorded Omeprazole 20 mg PO ACB #30 tab 09/15/17 <Panfilo Dupont - 12/23/17 13:32> Allergies Allergy/AdvReac Type Severity Reaction Status Date / Time No Known Drug Allergies Allergy Unknown Verified 12/22/17 14:22 <Panfilo Dupont Q - 12/23/17 13:32> Review of Systems All systems: reviewed and negative except as stated <Anu Hill 15:47> Constitutional: Reports: as per HPI. Denies: fever, chills, weight change, night sweats <Anu Hill 12/22/17 15:47> Eyes: Denies: eye pain, eye discharge <Anu Hill 12/22/17 15:47> ENT: Denies: ear pain, throat pain <Anu Hill 12/22/17 15:47> Cardiovascular: Reports: other (s). Denies: chest pain, palpitations <Liz Anu Whyte 12/22/17 15:47> Respiratory: Denies: cough, dyspnea <LizAnu Whyte 12/22/17 15:47> Gastrointestinal: Denies: abdominal pain, nausea, vomiting, diarrhea <Hill Anu Pato 12/22/17 15:47> Genitourinary: Reports: frequency (states due to diuretics ) <HillAnu Whyte 12/22/17 15:47> Musculoskeletal: Reports: back pain, joint swelling <HillAnu Pato 15:47> Integumentary: Denies: rash <HillAnu Pato 12/22/17 15:47> Neurological: Reports: as per HPI. Denies: numbness, paresthesias, confusion <HillAnu Pato 12/22/17 15:47> Endocrine: Denies: fatigue <HillAnu Whyte 12/22/17 15:47> Hematological/Lymphatic: Denies: easy bleeding, easy bruising <Hill,Anu Pato 12/22/17 15:47> Allergic/Immunologic: Denies: facial swelling <HillAnu Pato 12/22/17 15: 47> [facility] Patient Stated Medical History Migraine Yes: none recently Peripheral Neuropathy Yes Cataracts Yes: right Dysphagia Yes Angina Yes: takes NTG prn--last Apr 2017 Cardiac Arrhythmia Yes: atrial fib Congestive Heart Failure Yes Coronary Artery Disease Yes Hypertension Yes 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 Peripheral neuropathy. Dysphagia. A- fib. CHF - EF 40%. Hypokalemia. CAD. Cardiomyopathy. GERD. Esophageal strictures. History of frequent UTIs. Osteopenia. Osteoarthritis. History of shingles. History of depression. Back pain. <Anu Hill 12/22/17 15:28> Surgical History: PPM 04/2001. Laminectomy. Hysterectomy. Appendectomy. carpel tunnel release <Anu Hill 12/22/17 15:28> - Social History Smoking status: Former smoker <Anu Hill 12/22/17 15:28> Substance use type: does not use <Anu Hill 12/22/17 15:28> Alcohol intake frequency: does not drink <Anu Hill 12/22/17 15:28> Housing: house <Anu Hill 12/22/17 15:28> Household members: none <Anu Hill 12/22/17 15:47> Current occupational status: retired <Anu Hill 12/22/17 15:28> Does patient use chewing tobacco?: No <Anu Hill 12/22/17 15:28> Current residence: Apartment/Private Home <Anu Hill 12/22/17 15:28> Physical Exam - Limitations Limitations: no limitations <Anu Hill 12/22/17 15:47> - General General appearance: alert, in no apparent distress <Anu Hill 15:47> - Normal Exams: Head:: Normocephalic without trauma <Anu Hill 12/22/17 15:47> Eyes:: Pupils are PERRLA w/ EOMI, No scleral icterus, irritation, or foreign bodies noted <Anu Hill 12/22/17 15:47> ENMT:: No facial trauma, nasal exudates, pharyngeal erythema, or exudates are noted <Anu Hill 12/22/17 15:47> Neck:: Full range of motion, without adenopathy, JVD, bruits or thyromegaly < Anu Hill 12/22/17 15:47> Chest/Respirations:: Clear all mina, with good airflow, and symmetry bilaterally <Hill,Anu E 12/22/17 15:47> Cardiovascular:: Regular rate and rhythm, without murmur or gallop, Pulses 2+ all extremities, capillary refill, <2 seconds all extremities <HillAnu E 12/22/17 15:47> Abdomen:: Bowel sounds positive, soft, non-tender, non-distended, no hepatosplenomegaly, masses or bruits noted <Anu Hill 12/22/17 15:47> Lymphatic:: No lymphadenopathy, or lymphedema noted <Anu Hill 15:47> Musculoskeletal:: No tenderness, or deformity noted, good range of motion, all extremities <Anu Hill 12/22/17 15:47> Integumentary:: No rashes, hives, or bruising noted, hair and nails, without abnormality <Anu Hill 12/22/17 15:47> Neurological:: Patient is alert, and oriented, cranial nerves, motor/sensory/ cerebellar, exams w/o gross deficits, to observation <Anu Hill 12/22 15:47> - Expanded ENT Exam External ear exam: Absent: auricular hematoma, pain with movement <Anu Hill 12/22/17 15:57> TM/Canal exam: Left TM: effusion (clear ) <Anu Hill 12/22/17 15:57> Nose exam: Absent: sinus tenderness, nasal deviation, septal hematoma <Anu Hill 12/22/17 15:57> Nasal speculum exam: Bilateral: normal <Anu Hill 12/22/17 15:57> Mouth exam: Present: normal external inspection. Absent: tongue swelling, laceration <Anu Hill 12/22/17 15:57> Throat exam: Present: normal inspection. Absent: tonsillar erythema, tonsillar exudate <Anu Hill 12/22/17 15:57> Course - Consultations Consultation #1: Dr Medrano <Anu Hill 12/22/17 15:57> Time: 15:54 (will admit for observation ) <Anu Hill - 12/22/17 15:57> Vital Signs Temperature 97.4 F 12/22/17 13:54 Pulse Rate 93 12/22/17 13:54 Respiratory Rate 20 12/22/17 13:54 Blood Pressure 145/65 H 12/22/17 13:54 Pulse Oximetry 99 12/22/17 13:54 Temperature 95.4 F L 12/23/17 08:00 Pulse Rate 60 12/23/17 08:00 Respiratory Rate 14 12/23/17 08:00 Blood Pressure 127/60 12/23/17 08:00 Pulse Oximetry 99 12/23/17 08:00 <Panfilo Dupont - 12/23/17 13:32> Dizziness - MDM Narrative Medical decision making narrative: Patient is neurologically intact; very alert, oriented and appropriate. Patients BUN and creat are significantly elevated . Patient shows no physical evidence of fluid overload; VSS with oxygenation on room air 99% . Chest xray does not indicate change from last xray. Denies chest pain. Patient will be admitted to the hospitalist service in observation status. Patient received 500 ml of NS in the ED. <Anu Hill - 12/22/17 16:02> - Differential Diagnosis Likely: adverse reaction to drug, benign paroxysmal positional vertigo, orthostatic hypotension, vertebral basilar insufficiency, cerebrovascular accident, acute vestibular neuronitis, transient cerebral ischemia <Anu Hill - 12/22/17 15:57> - Medical Records Attestation: I reviewed the patient's medical records. <Anu Hill - 15:57> - Lab Data Attestation: I reviewed the patient's lab results. <Anu Hill - 15:57> Result diagrams: 12/22/17 14:51 12/23/17 04:38 <Panfilo Dupont - 12/23/17 13:32> Lab Results 12/22/17 12/22/17 12/22/17 Range/Units 14:47 14:47 14:47 WBC (4.5-11.0) T/MM3 RBC (4.00-5.20) M/MM3 Hgb (12-16) GM/DL Hct (36-46) % MCV (80-100) UM3 MCH (26-34) UUG MCHC (31-37) GM/DL RDW Std Deviation (36.9-50.2) FL Plt Count (130-400) T/MM3 MPV (9.4-12.4) UM3 Neutrophils % (Manual) (33-66) % Lymphocytes % (Manual) (23-45) % Monocytes % (Manual) (0-9.0) % Eosinophils % (Manual) (0-4) % Neutrophils # (Manual) (1.8-7.7) T/MM3 Lymphocytes # (Manual) (1-4.8) T/MM3 Monocytes # (Manual) (0-0.8) T/MM3 Eosinophils # (Manual) (0-0.5) T/MM3 Anisocytosis RBC Morph Comment Turbidity (0-20) Sodium (136-146) MEQ/L Potassium (3.6-5) MEQ/L Chloride (98-107) MEQ/L Carbon Dioxide (22-30) MEQ/L Anion Gap (5-15) meq/L BUN (7-17) MG/DL Creatinine (0.7-1.2) mg/dL Estimated Creat Clear GFR Calculation (>60) mL/min BUN/Creatinine Ratio (6-26) RATIO Glucose (65-110) MG/DL Calculated Osmolality (261-280) MOSM/KG Calcium (8.4-10.2) MG/DL Total Bilirubin (0.20-1.30) MG/DL Icterus Index (0-7) AST (14-36) U/L ALT (1-35) U/L Alkaline Phosphatase (38-126) U/L Troponin I (0-0.12) ng/ml NT-Pro-B Natriuret Pep 2770 H (0-175) pg/mL Total Protein (6.3-8.2) g/dL Albumin (3.5-5.0) g/dL Globulin (2.4-3.6) G/DL Albumin/Globulin Ratio (1.1-2.2) RATIO TSH 0.09 L (0.47-4.68) mIU/L Free T4 1.99 (0.78-2.19) ng/dL Specimen Hemolysis (0-25) Ur Collection Type Urine, void-cc/notcc Urine Color Yellow (YELLOW) Urine Clarity Sl cloudy Urine pH 5.5 (5.0-8.0) Ur Specific [place] <=1.005 L (1.015-1.025) Urine Protein Negative (NEGATIVE) Urine Glucose (UA) Negative (NEGATIVE) Urine Ketones Negative (NEGATIVE) Urine Occult Blood Negative (NEGATIVE) Urine Nitrate Negative (NEGATIVE) Urine Bilirubin Negative (NEGATIVE) Urine Urobilinogen 0.2 (NORMAL) EU/DL Ur Leukocyte Esterase Negative (NEGATIVE) Urinalysis Comment Microscopic not ind. 12/22/17 12/22/17 Range/Units 14:51 14:51 WBC 7.3 (4.5-11.0) T/MM3 RBC 4.55 (4.00-5.20) M/MM3 Hgb 12.9 (12-16) GM/DL Hct 39.5 (36-46) % MCV 86.8 (80-100) UM3 MCH 28.4 (26-34) UUG MCHC 32.7 (31-37) GM/DL RDW Std Deviation 51.8 H (36.9-50.2) FL Plt Count 309 (130-400) T/MM3 MPV 9.3 L (9.4-12.4) UM3 Neutrophils % (Manual) 62.0 (33-66) % Lymphocytes % (Manual) 31.0 (23-45) % Monocytes % (Manual) 3.0 (0-9.0) % Eosinophils % (Manual) 4.0 (0-4) % Neutrophils # (Manual) 4.5 (1.8-7.7) T/MM3 Lymphocytes # (Manual) 2.3 (1-4.8) T/MM3 Monocytes # (Manual) 0.2 (0-0.8) T/MM3 Eosinophils # (Manual) 0.3 (0-0.5) T/MM3 Anisocytosis 1+ RBC Morph Comment Abnormal Turbidity < 20 (0-20) Sodium 143 (136-146) MEQ/L Potassium 4.3 (3.6-5) MEQ/L Chloride 104 (98-107) MEQ/L Carbon Dioxide 20 L (22-30) MEQ/L Anion Gap 19 H (5-15) meq/L BUN 56.0 H* (7-17) MG/DL Creatinine 2.5 H (0.7-1.2) mg/dL Estimated Creat Clear Not performed GFR Calculation 18 (>60) mL/min BUN/Creatinine Ratio 22 (6-26) RATIO Glucose 104 (65-110) MG/DL Calculated Osmolality 291 H (261-280) MOSM/KG Calcium 9.7 (8.4-10.2) MG/DL Total Bilirubin 0.30 (0.20-1.30) MG/DL Icterus Index < 2 (0-7) AST 35 (14-36) U/L ALT 18 (1-35) U/L Alkaline Phosphatase 82 (38-126) U/L Troponin I 0.045 (0-0.12) ng/ml NT-Pro-B Natriuret Pep (0-175) pg/mL Total Protein 8.3 H (6.3-8.2) g/dL Albumin 4.9 (3.5-5.0) g/dL Globulin 3.4 (2.4-3.6) G/DL Albumin/Globulin Ratio 1.4 (1.1-2.2) RATIO TSH (0.47-4.68) mIU/L Free T4 (0.78-2.19) ng/dL Specimen Hemolysis < 15 (0-25) Ur Collection Type Urine Color (YELLOW) Urine Clarity Urine pH (5.0-8.0) Ur Specific [place] (1.015-1.025) Urine Protein (NEGATIVE) Urine Glucose (UA) (NEGATIVE) Urine Ketones (NEGATIVE) Urine Occult Blood (NEGATIVE) Urine Nitrate (NEGATIVE) Urine Bilirubin (NEGATIVE) Urine Urobilinogen (NORMAL) EU/DL Ur Leukocyte Esterase (NEGATIVE) Urinalysis Comment <Panfilo Dupont Q - 12/23/17 13:32> - Radiology Data Attestation: I reviewed the patient's radiology results. <Anu Hill E - 12/22/17 15:57> - Core Measures Measure exclusions: not indicated <Anu Hill - 12/22/17 15:57> Disposition Clinical Impression: Dizziness, Acute renal injury <Panfilo Dupont Q - 12/23/17 13:32> Disposition: 02 To [facility] <Panfilo Dupont Q - 12/23/17 13:32> Condition: Stable <Panfilo Dupont Q - 12/23/17 13:32> Instructions: <Panfilo Dupont Q - 12/23/17 13:32> Prescriptions: Continue Vitamin E 400 unit PO DAILY SACUBITRIL/VALSARTAN 49/51mg [ENTRESTO 49/51mg] 1 tab PO BID Omeprazole 20 mg PO ACB #30 tab Cholecalciferol (Vitamin D3) [Vitamin D3] 1,000 unit PO DAILY Hydrocodone/APAP 5/325 [[place] 5/325] 1 tab PO DAILY PRN PRN Reason: Pain Aspirin [Iván Chewable Aspirin] 81 mg PO DAILY Cyanocobalamin (Vitamin B-12) [Vitamin B12] 2,500 mcg PO DAILY Potassium Chloride 20 meq PO DAILY Levothyroxine Tab [Synthroid] 125 mcg PO DAILY Metolazone [Zaroxolyn] 2.5 mg PO DAILY Ascorbic Acid [Vitamin C] 500 mg PO DAILY <Panfilo Dupont Q - 12/23/17 13:32 > Referrals: Terrance Collado II, MD [Primary Care Provider] - <Panfilo Dupont Q - 12/23/17 13:32> Forms: <Panfilo Dupont - 12/23/17 13:32> Time of Disposition: 15:53 <Anu Hill - 12/22/17 15:53> - Seen By: midlevel <Anu Hill 12/22/17 15:53> Addendum entered and electronically signed by Anu Hill APRN 12/22/17 16:03: Clarification from HPI narration to be hypokalemia with prior hospitalization likely related to diuresis , not diet as stated in note.
--- NOTE | 2017-12-22 15:31 | CT Scan Report ---
Indication: dizziness PROCEDURE: CT head/brain wo con: Encounter: Initial Comparison: September 22, 2014 Technique: Axial CT images through the head were performed without contrast. Iterative Reconstruction dose reducing technique was utilized. FINDINGS: The ventricles are of normal size, shape, and contour for the patient's age. Small basal ganglia calcifications. There are scattered areas of low attenuation in the white matter which most likely represent changes from chronic microvascular ischemia. The brainstem, cerebellum, and cerebral hemispheres otherwise have a normal morphology and CT attenuation. There is no evidence of midline displacement. No hemorrhage, signs of acute territorial stroke, mass effect, mass lesions, or edema is evident. The visualized portions of the skull base, midface, and calvarium demonstrate no abnormality. The paranasal sinuses are well aerated and free of significant disease. The tympanic and mastoid cavities appear normal. IMPRESSION: No acute intracranial abnormality or hemorrhage. Stable head CT. .
--- NOTE | 2017-12-22 15:59 | XRay Report ---
Indication: dizziness, PROCEDURE: XR chest 1V: Encounter: Initial Comparison: November 23, 2017 Findings: The lungs are stable in appearance without new focal airspace consolidation. There is no pleural effusion or pneumothorax. The heart size, pulmonary vascularity and mediastinal contours are unchanged. Left pacemaker defibrillator. IMPRESSION: Stable appearance of the chest without acute cardiopulmonary disease. .
--- NOTE | 2017-12-22 16:37 | History & Physical Report ---
History of Present Illness Date: 12/22/17 Chief complaint: dizziness HPI: Patient is an 87 yo female who present to ED with c/o dizziness. She states she 's been in bed for the past 3 days because whenever she is up and walking she gets dizzy. She initially presented to her PCP's office and was sent to ER due to her sxs. She did have an EKG at Dr. Collado's office showing a ventricular paced rhythm. (EKG not repeated in ER.) In ER, she had a CT head showing no acute changes and a CXR with stable appearance. Neg orthostatic BP's. She has known ischemic cardiomyopathy with an EF of 30-35% on echo (performed 11/24/17) and an AICD. She was hospitalized 11/24/17 for SOA and dizziness; however, there was no sign of acute CHF. Dr Parrish (covering for Dr. Travis) was consulted and performed echo. She did have hypokalemia which was replaced - resulting in improvement of patient's symptoms. Of note, patient had esophagogastroduodenoscopy with wire-guided esophageal dilation with Savary-Jyoti dilators due to odynophagia, recurrent dysphagia, recurrent esophageal stricture by Dr Starr on 12/08/17. She also had BiV ICD implanted by Dr. Manjarrez in October (to replace her previous PM). Review of Systems All systems PM: 10-point ROS was reviewed, no additional remarkable complaints except (dizziness, urinary frequency/nocturia (chronic/ongoing), occ headaches - resolve with Excedrin, R low back and leg pain, diarrhea the day before yesterday) Past Medical History Medical History Updates: Hypertension. Peripheral neuropathy. Dysphagia. A- fib. CHF - EF 40%. Hypokalemia. CAD. Cardiomyopathy. GERD. Esophageal strictures. History of frequent UTIs. Osteopenia. Osteoarthritis. History of shingles. History of depression. Back pain. Surgical History: PPM 04/2001 - replacement October 2017. Laminectomy. Hysterectomy. Appendectomy. carpel tunnel release. Esophageal dilations for recurrent dysphagia & recurrent esophageal stricture by Dr Starr. cataract surgery L eye Family History: Father - after falling out of a tree landing on a fence Mother - of old age at 92 Sister - of bone cancer Brother - - "someone shot him" Sister - Alzheimers (lives in [place]) Sister - at age 3 of brain aneurysm Brother - of Alzheimers Brother - of gunshot wound (unknown if suicide or homicide) Son - - DM/"bad liver" Pt has 9 brothers and 6 sisters Family History: As Above - Social History Smoking status: Former smoker (quit 17 yrs ago) Substance use type: does not use Alcohol intake frequency: does not drink Household members: none Current occupational status: retired Does patient use chewing tobacco?: No Current residence: Apartment/Private Home Social history: PCP - Dr. Collado Surgeon Dr. Starr Purchasing Officer - Dr. Travis Has 3 living daughters and 1 son. Medications Home Medications Medication Instructions Recorded Confirmed Type Levothyroxine Tab [Synthroid] 125 mcg PO DAILY 03/05/17 12/22/17 History Vitamin E 400 unit PO DAILY 04/25/17 12/22/17 History SACUBITRIL/VALSARTAN 49/51mg 1 tab PO BID 09/14/17 12/22/17 History [ENTRESTO 49/51mg] Omeprazole 20 mg PO ACB #30 tab 09/15/17 12/22/17 Rx Aspirin [Iván Chewable Aspirin] 81 mg PO DAILY 11/01/17 12/22/17 History Cholecalciferol (Vitamin D3) 1,000 unit PO DAILY 11/01/17 12/22/17 History [Vitamin D3] Hydrocodone/APAP 5/325 [[place] 1 tab PO DAILY PRN 11/01/17 12/22/17 History 5/325] Metolazone [Zaroxolyn] 2.5 mg PO DAILY 11/01/17 12/22/17 History Cyanocobalamin (Vitamin B-12) 2,500 mcg PO DAILY 12/07/17 12/22/17 History [Vitamin B12] Ascorbic Acid [Vitamin C] 500 mg PO DAILY 12/22/17 12/22/17 History Potassium Chloride 20 meq PO DAILY 12/22/17 12/22/17 History Allergies Allergy/AdvReac Type Severity Reaction Status Date / Time No Known Drug Allergies Allergy Unknown Verified 12/22/17 14:22 Exam Vital Signs: Temperature 97.4 F 12/22/17 13:54 Pulse Rate 69 12/22/17 15:30 Respiratory Rate 16 12/22/17 15:30 Blood Pressure 137/83 12/22/17 15:30 Pulse Oximetry 100 12/22/17 15:30 Height/Weight/BMI: Height 1.37 m Weight 33.2 kg - Constitutional Present: no acute distress, well developed, thin - Routine HEENT Exam Head: Present: normocephalic, atraumatic Eye: Present: EOMI, PERRL. Absent: nystagmus ENT: Present: mucous membranes moist, oropharynx clear - Routine Neck Exam Present: supple. Absent: JVD, carotid bruit, lymphadenopathy - Routine Respiratory Exam Present: CTA bilaterally. Absent: wheezes - Routine Cardiovascular Exam Present: RRR, no murmur - Routine Abdominal Exam Present: soft, normoactive bowel sounds, tenderness (mild suprapubic). Absent: distended - Routine Extremities Exam Present: no edema, normal capillary refill - Routine Skin Exam Present: dry, warm - Routine Neurological Exam Present: alert, oriented X3, CN II-XII intact, normal speech - Routine Psychiatric Exam Present: normal affect, cooperative Results - Labs CBC & Chem 7: 12/22/17 14:51 12/22/17 14:51 - Imaging and Cardiology Chest x-ray Additional comments: Date of Exam: 12/22/17 Indication: dizziness, PROCEDURE: XR chest 1V: Findings: The lungs are stable in appearance without new focal airspace consolidation. There is no pleural effusion or pneumothorax. The heart size, pulmonary vascularity and mediastinal contours are unchanged. Left pacemaker defibrillator. IMPRESSION: Stable appearance of the chest without acute cardiopulmonary disease. CT scan - head Additional comments: Date of Exam: 12/22/17 Indication: dizziness PROCEDURE: CT head/brain wo con: FINDINGS: The ventricles are of normal size, shape, and contour for the patient' s age. Small basal ganglia calcifications. There are scattered areas of low attenuation in the white matter which most likely represent changes from chronic microvascular ischemia. The brainstem, cerebellum, and cerebral hemispheres otherwise have a normal morphology and CT attenuation. There is no evidence of midline displacement. No hemorrhage, signs of acute territorial stroke, mass effect, mass lesions, or edema is evident. The visualized portions of the skull base, midface, and calvarium demonstrate no abnormality. The paranasal sinuses are well aerated and free of significant disease. The tympanic and mastoid cavities appear normal. IMPRESSION: No acute intracranial abnormality or hemorrhage. Stable head CT. Assessment and Plan (1) Acute renal injury Current visit: Yes Status: Acute (2) Dizziness Current visit: Yes Status: Acute Assessment and Plan: Assessment Acute renal failure Dizziness CHF - EF ~30-35% CKD ASVD Chronic anemia Peripheral neuropathy Low back pain/R leg pain Dysphagia/recurrent esophageal stricture GERD H/o frequent UTI Osteopenia Osteoarthritis H/o depression Plan Admit, OBS. NS 500ml bolused in ER. Will given another 500ml on admission then run at 50ml/ hr. Renal panel in am to follow renal function. Hold Zaroxolyn (& KCl) and Entresto given her renal function. Labetalol 10mg IV q 6 hrs PRN systolic >180. Consult PT for vertigo/vestibular eval/tx if indicated. Meclizine PRN. Follow I&O's closely given her CHF. Daily weights. SCD's for DVT ppx/ omeprazole for GI ppx and tx of GERD Code status - DNR PCP - Dr. Collado/ Cardiology -Dr Travis DVT Prophylaxis: SCD's GI Prophylaxis: Omeprazole ((pt takes at home)) Resuscitation Status: Do Not Resuscitate - Physician Narrative Physician: Kris Medrano MD Narrative: Date: 12/22/17 Time: 1634 I have independently interviewed and examined patient. Patient chart reviewed. Case discussed with my PA. Care plan developed with my supervision, agree with above. A pleasant 87-year-old female patient presented to the emergency room with 3 day history of dizziness. Patient has also had complaints of loose stools for the past 2 days. History of systolic congestive heart failure with ischemic cardiomyopathy, status post AICD placement and being followed up by director of intercollegiate athletics , Dr. Travis. In the emergency room, patient had a BUN 56, serum creatinine 2.5 , previously established baseline serum creatinine 1.3-1.9 from October 2017July 2017. With these findings, hospitalist service was contacted and patient admitted for observation to medical floor with telemetry. At the time of evaluation at bedside following admission to medical floor, patient reports symptoms of dizziness slightly improved. No reported blurred vision, no nystagmus. Patient does not report any significant exacerbation of dizziness on change in head position. PFSH: As above ROS: 10 point review negative except - positive dizziness, positive headache, positive diarrhea, positive back pain, positive increased urinary frequency, positive nocturia. Physical exam: General: Alert, awake, oriented x3. Not in acute distress. Patient appears thin , malnourished. Head: Pupils equal, round, reactive to light and accommodation. Extraocular movements intact. Neck: No elevation in JVP. No pharyngeal erythema noted. Chest: The patient does not use accessory muscles for breathing. Lungs: Breath sounds audible on auscultation bilateral lung mina. No wheezing , no rhonchi, no crepitations, no crackles. No pleural rub. CVS: S1, S2 heard on auscultation. Normal rate and rhythm. No murmur, no S3/S4 gallops. Abdomen: Soft, nontender, no distention. Bowel sounds appreciated on auscultation. Skin: No rashes, no induration, no erythema. Capillary refill less than 4 seconds. Extremities: No evidence of pedal edema bilateral lower extremities. No calf tenderness bilaterally. Palpable dorsalis pedis and posterior tibial pulses bilateral lower extremities. Assessment: Acute renal failure, likely secondary to diuresis with contraction alkalosis. Systolic congestive heart failure, not in failure. Intractable dizziness, chronic kidney disease stage III, peripheral neuropathy, chronic anemia, history of recurrent UTI, GERD, osteoarthritis, osteopenia, dysphagia, chronic low back pain. Plan: Patient symptoms likely secondary to contraction alkalosis from diuresis. Will hold diuretic medication for now. Will give total of 1 L IV fluids normal saline bolus followed by IV normal saline at 50 mL per hour. Home medication entresto, metolazone will be held for now. We will recheck renal profile tomorrow. Will closely monitor intake and output, daily weights. IV labetalol 10 mg every 6 hours as needed for systolic blood pressure greater than 180. Hospital Course Summary Disclaimer: The visit summary below is not to be considered part of the above Progress Note. Hospital Course: 12/22/17 Admit, OBS. NS 500ml bolused in ER. Will given another 500ml on admission then run at 50ml/ hr. Renal panel in am to follow renal function. Hold Zaroxolyn (& KCl) and Entresto given her renal function. Labetalol 10mg IV q 6 hrs PRN systolic >180. Consult PT for vertigo/vestibular eval/tx if indicated. Meclizine PRN. Follow I&O's closely given her CHF. Daily weights. SCD's for DVT ppx/ omeprazole for GI ppx and tx of GERD Code status - DNR PCP - Dr. Collado/ Cardiology -Dr Travis
[2017-12-22 16:55] VITALS: BMI 17.9
[2017-12-22] MEDS ORDERED: HYDROCODONE/APAP 5mg/325mg TABLET PO PRN (17:11)
[2017-12-22] MEDS ORDERED: NS 500 ML IV SCH (17:15)
[2017-12-22] MEDS ORDERED: LABETALOL 100mg/20ml INJECTION IVP PRN (17:19)
[2017-12-22] MEDS ORDERED: NS 1,000 ML IV SCH (17:30)
[2017-12-23 00:01] VITALS: RESP 14
[2017-12-23] MEDS ORDERED: OMEPRAZOLE 20 MG CAPSULE PO SCH (06:30)
[2017-12-23] MEDS ORDERED: NON-FORMULARY MEDICATION 1 EACH EACH (Omeprazole [Omeprazole] 20 MG) PO SCH (06:30)
[2017-12-23 08:02] VITALS: BP 127/60; TEMP 95.4; O2SAT 99
[2017-12-23] MEDS ORDERED: ASCORBIC ACID 500 MG TABLET PO SCH (09:00)
[2017-12-23] MEDS ORDERED: CYANOCOBALAMIN (B-12) 500mcg TABLET PO SCH (09:00)
[2017-12-23] MEDS ORDERED: POTASSIUM CHLORIDE 20 MEQ PO SCH (09:00)
[2017-12-23] MEDS ORDERED: ASPIRIN 81 MG CHEWABLE TABLET PO SCH (09:00)
[2017-12-23] MEDS ORDERED: CYANOCOBALAMIN PO SCH (09:00)
[2017-12-23] MEDS ORDERED: [UNRECOGNIZED DRUG - OTHER] PO SCH (09:00)
[2017-12-23] MEDS ORDERED: VITAMIN E 400 UNIT CAPSULE PO SCH (09:00)
[2017-12-23] MEDS ORDERED: NON-FORMULARY MEDICATION 1 EACH EACH (Cholecalciferol (Vitamin D3) [Vitamin D3] 1,000 UNIT PO SCH (09:00)
[2017-12-23 10:31] VITALS: PULSE 60
--- NOTE | 2017-12-23 11:55 | Discharge Summary ---
Discharge Information Date of admission: 12/22/17 15:52 Anticipated date of discharge: 12/23/17 Attending Physician: Kris Medrano MD Primary care physician: Terrance López II, MD - Discharge Diagnosis (1) Dizziness Status: Acute (2) Acute renal injury Status: Acute Problems Reviewed?: Yes Acute renal failure Dizziness CHF - EF ~30-35% CKD ASVD Chronic anemia Peripheral neuropathy Low back pain/R leg pain Dysphagia/recurrent esophageal stricture GERD H/o frequent UTI Osteopenia Osteoarthritis H/o depression - Procedures Procedures: None - Laboratory Labs: 12/22/17 14:51 12/23/17 04:38 - Microbiology None - Radiology Radiology: 12/22/17 Chest [id number] for acute cardiopulmonary disease. CT head-no intracranial abnormality or hemorrhage - Pathology N/A History of Present Illness HPI: Patient is an 87 yo female who present to ED with c/o dizziness. She states she 's been in bed for the past 3 days because whenever she is up and walking she gets dizzy. She initially presented to her PCP's office and was sent to ER due to her sxs. She did have an EKG at Dr. López's office showing a ventricular paced rhythm. (EKG not repeated in ER.) In ER, she had a CT head showing no acute changes and a CXR with stable appearance. Neg orthostatic BP's. She has known ischemic cardiomyopathy with an EF of 30-35% on echo (performed 11/24/17) and an AICD. She was hospitalized 11/24/17 for SOA and dizziness; however, there was no sign of acute CHF. Dr Parrish (covering for Dr. Travis) was consulted and performed echo. She did have hypokalemia which was replaced - resulting in improvement of patient's symptoms. Of note, patient had esophagogastroduodenoscopy with wire-guided esophageal dilation with Dashawn-Jyoti dilators due to odynophagia, recurrent dysphagia, recurrent esophageal stricture by Dr Starr on 12/08/17. She also had BiV ICD implanted by Dr. Manjarrez in October (to replace her previous PM). Objective Vital signs: Temperature 95.4 F L 12/23/17 08:00 Pulse Rate 60 12/23/17 08:00 Respiratory Rate 14 12/23/17 08:00 Blood Pressure 127/60 12/23/17 08:00 Pulse Oximetry 99 12/23/17 08:00 Height/Weight/BMI: Height 1.4 m Weight 34.7 kg Body Mass Index 17.9 - Constitutional Present: no acute distress, well nourished, well developed - Routine HEENT Exam Eye: Present: EOMI ENT: Present: mucous membranes moist, dentition normal - Routine Respiratory Exam Present: CTA bilaterally. Absent: wheezes - Routine Cardiovascular Exam Present: RRR, S1, S2. Absent: murmur - Routine Abdominal Exam Present: soft, normoactive bowel sounds, non distended. Absent: tenderness - Routine Extremities Exam Present: no edema, full ROM - Routine Back/Spine/Pelvis Exam Back/Spine: Present: full ROM - Routine Skin Exam Present: intact, dry, warm - Routine Neurological Exam Present: alert, oriented X3, CN II-XII intact, moving all extremities - Routine Lymphatic Exam Lymphatic: Absent: adenopathy - Routine Psychiatric Exam Present: normal affect, normal thought process, cooperative Hospital Course This is a general summary of the patient's hospital course. For more details refer to the complete medical record. Hospital course: 12/22/17- Admit, OBS. NS 500ml bolused in ER. Will given another 500ml on admission then run at 50ml/ hr. Renal panel in am to follow renal function. Hold Zaroxolyn (& KCl) and Entresto given her renal function. Labetalol 10mg IV q 6 hrs PRN systolic >180. Consult PT for vertigo/vestibular eval/tx if indicated. Meclizine PRN. Follow I&O's closely given her CHF. Daily weights. SCD's for DVT ppx/ omeprazole for GI ppx and tx of GERD Code status - DNR PCP - Dr. López/ Cardiology -Dr Travis 12/23/17- Discharge Trish is seen and examined today prior to discharge. She is alert, oriented and pleasant today. States that she is feeling much better without any further episodes of lightheadedness or dizziness. She has been up and ambulating and tolerated this well. She denies having any pain or feeling short of breath. She has eaten a good breakfast today without difficulty. Renal function has improved. Creatinine is down to 1.8, Her baseline appears to be 1.6-1.9. Did speak with Avril CONTI with cardiology regarding patient's home Entresto. She recommended resuming home dose on Thursday-12/25 as this has been on hold since admission. Patient is to resume Zaroxolyn tomorrow. Patient does state she feels good to go home where she does reside independently. Recommended that patient follow up with primary care, Dr. López in the next 1 week and have a recheck and labs. Resuscitation Status: Do Not Resuscitate Discharge Plan - Discharge Disposition Discharge Date: 12/23/17 Disposition: 01 Discharged Home, Self-Care *Condition: Stable Reason For Visit (Visit label in EMR): dizziness, DMITRI - Discharge Medications *Discharge Medications: Continue Vitamin E 400 unit PO DAILY SACUBITRIL/VALSARTAN 49/51mg [ENTRESTO 49/51mg] 1 tab PO BID Omeprazole 20 mg PO ACB #30 tab Cholecalciferol (Vitamin D3) [Vitamin D3] 1,000 unit PO DAILY Hydrocodone/APAP 5/325 [[place] 5/325] 1 tab PO DAILY PRN PRN Reason: Pain Aspirin [Iván Chewable Aspirin] 81 mg PO DAILY Cyanocobalamin (Vitamin B-12) [Vitamin B12] 2,500 mcg PO DAILY Potassium Chloride 20 meq PO DAILY Levothyroxine Tab [Synthroid] 125 mcg PO DAILY Metolazone [Zaroxolyn] 2.5 mg PO DAILY Ascorbic Acid [Vitamin C] 500 mg PO DAILY - Discharge Packet/Instructions *Diet: Cardiac diet- 2 gm sodium *Activity: Activity as tolerated *Pain Management/Treatment: Use caution taking [place] as this can cause dizziness *Wound Care: None Additional Instructions: Start taking Entresto again on thursday12/25/17. Follow up with PCP Dr López in 1 week *Notify Physician if: Lightheaded, dizziness, low blood pressure or other concerning symptoms *During Business Hours Contact: Dr López *After Business Hours Contact: Page oncall provider for Dr López *Pending Lab/Results: No Pending Lab - Referrals/Follow Up *Referrals/Follow Up: Terrance López II, MD [Primary Care Provider] - (Schedule follow up for 1 week APPOINTMENT ON 12/30 AT 09OO.) - Patient Handouts Patient Handouts: Acute Kidney Injury (DC), Meniere Disease (DC) - Dismissal Complete Discharge Instructions are:: Complete Physician Narrative - Narrative Physician: Kris Medrano MD Attestation Narrative: Date: 12/23/17 Time: 1149 I have independently interviewed and examined patient. Patient chart reviewed. Case discussed with my ASSISTANT BOOKKEEPER. Care plan developed with my supervision, agree with above. A pleasant 87-year-old female patient admitted with complaints of loose stools, fatigue, weakness. BUN 56, serum creatinine 2.5 on the day of admission. Diuretic medications were held and patient received 1 L IV fluid normal saline bolus followed by IV fluids at 50 mL per hour overnight. BUN 43, serum creatinine 1.8 on the day of discharge. Symptoms of fatigue, weakness has improved. Patient's home medication entresto was held during hospital stay, discussed case with cardiology and plan to resume all medication entresto from 12/25/2017. Patient may resume home medication metolazone from tomorrow. Follow-up with PCP, Dr. López in 1 week. Physical exam: AAO x 3, NAD. Malnourished, thin patient. PERRLA, EOMI S1 and S2 heard on auscultation, no murmurs Lungs clear to auscultation bilaterally, no wheezing, no crackles Abdomen soft, nontender, positive bowel sounds No edema bilateral lower extremities.
== END 2017-12-23 12:05 | disposition home or self-care (01) ==
LOC: ED 13:41 → EDHOLD 13:41 → MED 16:25
PROVIDERS: ADMIT Internal Medicine; ATTEND Internal Medicine